=== PATIENT | female | born 2000 | race Caucasian/White ===

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

== ENCOUNTER 2022-08-15 23:34 | Emergency (ER) | payer MEDICAID, SELFPAY ==
--- NOTE | 2022-08-15 23:45 | ECG_ITS ---
Test Reason : CHEST PAIN Blood Pressure : / mmHG Vent. Rate : 120 BPM Atrial Rate : 120 BPM P-R Int : 154 ms QRS Dur : 088 ms QT Int : 326 ms P-R-T Axes : 042 058 024 degrees QTc Int : 460 ms Sinus tachycardia Otherwise normal ECG No previous ECGs available Referred By: Generic ED Physician Electronically Signed By:CLARI RICHARD MD
[2022-08-15 23:58] VITALS: BP 130/76; PULSE 90; RESP 20; TEMP 36.4; BMI 23.3
[2022-08-16 00:07] LABS: MANUAL DIFF FLAG NO
[2022-08-16 00:08] LABS: Basophils Absolute Auto 0.1 X10*3/uL (0.0-0.2); Basophils Percent Auto 0.9 % (0-2); Eosinophils Absolute Auto 0.1 X10*3/uL (0.0-0.4); Eosinophils Percent Auto 1.4 % (0-4); Hematocrit 35.8 % (37.0-47.0); Hemoglobin 11.6 g/dl (12.0-16.0); Imm Gran Abs Auto 0.01 X10*3/uL (0.00-0.03); Imm Gran Pct Auto 0.1 % (0.0-0.4); Lymphocytes Absolute Auto 3.2 X10*3/uL (1.2-4.9); Lymphocytes Percent Auto 41.5 % (20-40); Mean Corpuscular HGB Conc 32.4 g/dl (31.0-35.0); Mean Corpuscular Hemoglobin 27.4 pg (27.0-33.0); Mean Corpuscular Volume 84.4 fL (80.0-98.0); Mean Platelet Volume 9.5 fL (9.4-12.3); Monocytes Absolute Auto 0.5 X10*3/uL (0.1-1.2); Monocytes Percent Auto 6.3 % (2-11); Neutrophils Absolute Auto 3.8 x10*3/uL (2.0-8.3); Neutrophils Percent Auto 49.8 % (45-73); Platelet Count 379 X10*3/uL (160-400); Red Blood Count 4.24 X10*6/uL (4.20-5.50); Red Cell Distribution Width 12.8 % (11.0-16.0); White Blood Count 7.6 X10*3/uL (4.8-10.8)
--- NOTE | 2022-08-16 00:08 | ED.CHESTPAIN ---
HPI - Chest Pain General Chief Complaint: Chest Pain Stated Complaint: face numbness, chest pain Time Seen by Provider: 08/16/22 00:07 Source: patient, RN notes reviewed and old records reviewed Mode of arrival: ambulatory Limitations: no limitations History of Present Illness HPI narrative: 21-year-old female past medical history significant for anxiety presents numbness, tingling and chest pain. She reports her symptoms started yesterday with tingling in the tip of her nose She reports that it then spread to both sides of her face. She reports that she has a hard time describing what she is healing on her face. ?I can feel everything but it feels funny to me. She states that she cooled her symptoms and ?it said something about a brain tumor and then I started to have chest pain. ? Patient denies any medical history. She states that she used to take hydroxyzine as needed for anxiety She stopped this a few months ago because ?sometimes I am in the tired and it was hard for me to function and work while taking it Related Data Previous Rx's Medication Instructions Recorded doxycycline monohydrate 100 mg 100 mg PO BID 7 days #14 caps 05/25/20 capsule hydroxyzine HCl 25 mg tablet 25 mg PO TID PRN anxiety #20 tabs 08/16/22 Allergies Allergy/AdvReac Type Severity Reaction Status Date / Time No Known Allergies Allergy Verified 04/23/20 12:54 [No Known Allergies*] Review of Systems Constitutional: Constitutional: Denies body ache(s), Denies chills, Denies fever(s) and Denies headache(s) Eyes: Eyes: Denies blurry vision ENT: Denies headache(s), Denies neck pain, Denies sore throat, Denies throat swelling and Denies tongue swelling Cardiovascular: Cardiovascular: Reports chest pain, Denies leg edema, Denies palpitations, Denies dyspnea and Denies dyspnea on exertion Respiratory: Respiratory: Denies dyspnea and Denies dyspnea on exertion Gastrointestinal: Gastrointestinal: Denies abdominal pain, Denies nausea and Denies vomiting Musculoskeletal: Musculoskeletal: Denies back pain, Denies neck pain, Reports numbness and Reports tingling Integumentary/Breasts: Skin/Breast: Denies rash Neurologic: Denies headache(s), Reports numbness, Reports tingling and Reports paresthesias Psychiatric: Psychiatric: Reports anxiety Endocrine: Endocrine: Denies palpitations Allergic/Immunologic: Allergic/Immunologic: Denies throat swelling and Denies tongue swelling PMFSH Past Medical History Medical History No known health problems No known health problems Social History Social History Alcohol intake: current Alcohol intake frequency: a few times a week Alcohol type: wine and hard liquor Smoked in Last 30 Days: Yes Substance Use Type: Marijuana Substance Use Frequency: Daily Advance Directives: No Advance Directives Information Provided: No Physical Exam Vital Signs: Vital Signs: Last Vital Signs Temp 98.2 F 08/16/22 00:21 Pulse 80 08/16/22 00:21 Resp 12 08/16/22 00:21 BP 111/78 08/16/22 00:21 Pulse Ox 97 08/16/22 00:21 O2 Del Method Room Air 08/16/22 00:21 BMI result Body Mass Index 23.3 Const: General: healthy appearing, comfortable, no acute distress, alert and awake Nutritional Appearance: well nourished Orientation/consciousness: patient oriented x3 HEENT: Head: Yes normocephalic and Yes atraumatic Throat: Yes posterior oropharynx normal Eyes: Eyelids: Yes eyelids normal Conjunctivae: conjunctivae normal Sclerae: sclerae normal Corneas: corneas normal Pupils: Equal, round and reactive pupils present EOM: EOMs intact bilaterally Neck: Neck: Yes full ROM Resp: Effort & Inspection: normal respiratory effort, able to speak in complete sentences, no audible wheezes and not labored Auscultation: clear to auscultation bilaterally Cardio: Rate: regular rate Rhythm: regular rhythm GI: Inspection: No distended Palpation (GI): Soft to palpation, not firm, nontender, no guarding and not rigid Auscultation: normoactive bowel sounds Skin: General skin exam: no rashes or lesions noted and elasticity normal Neuro: General: patient oriented x3 Cranial nerves: Yes Equal, round and reactive pupils present and Yes Bilaterally intact EOM present Cognition (Neuro): normal cognition Medications Administered Discontinued Medications Generic Name Dose Route Start Last Admin Trade Name Freq PRN Reason Stop Dose Admin Hydroxyzine HCl 25 mg 08/16/22 00:15 08/16/22 00:46 Hydroxyzine Hcl 25 Mg Tablet PO 08/16/22 00:16 25 mg ONCE ONE Administration Medical Decision Making Medical Decision Making [facility] Narrative: 21-year-old female presents for evaluation numbness, to her face as well as chest pain. She also complains of intermittent dizziness. Her symptoms are most consistent with anxiety. I discussed this with her and she reports she was feeling better simply with discussing her symptoms. Her EKG shows sinus tachycardia but no ischemic changes or arrhythmias. Will check basic labs. Patient will be given dose of her hydroxyzine Differential Diagnosis Anxiety B12 deficiency Folate deficiency Arrhythmia CVA in this likely Lab Data 08/16/22 00:03 08/16/22 00:03 Labs: Lab Results 08/16/22 08/16/22 08/16/22 Range/Units 00:03 00:03 00:03 WBC 7.6 (4.8-10.8) X10*3/uL RBC 4.24 (4.20-5.50) X10*6/uL Hgb 11.6 L (12.0-16.0) g/dl Hct 35.8 L (37.0-47.0) % MCV 84.4 (80.0-98.0) fL MCH 27.4 (27.0-33.0) pg MCHC 32.4 (31.0-35.0) g/dl RDW 12.8 (11.0-16.0) % Plt Count 379 (160-400) X10*3/uL MPV 9.5 (9.4-12.3) fL Immature Gran % (Auto) 0.1 (0.0-0.4) % Neut % (Auto) 49.8 (45-73) % Lymph % (Auto) 41.5 H (20-40) % [place] % (Auto) 6.3 (2-11) % Eos % (Auto) 1.4 (0-4) % Baso % (Auto) 0.9 (0-2) % Lymph # (Auto) 3.2 (1.2-4.9) X10*3/uL [place] # (Auto) 0.5 (0.1-1.2) X10*3/uL Eos # (Auto) 0.1 (0.0-0.4) X10*3/uL Baso # (Auto) 0.1 (0.0-0.2) X10*3/uL Abs Immat Gran (auto) 0.01 (0.00-0.03) X10*3/uL Absolute Neuts (auto) 3.8 (2.0-8.3) x10*3/uL Absolute Nucleated RBC 0.000 (0.0-0.012) X10*3/uL Nucleated RBC % (auto) 0.0 (0.0-0.2) /100WBC Sodium 139 (135-145) mmol/L Potassium 3.8 (3.3-5.1) mmol/L Chloride 108 (96-108) mmol/L Carbon Dioxide 20 L (22-29) mmol/L Anion Gap 15 (12-20) BUN 14 (9-16) mg/dL Creatinine 0.81 (0.5-1.4) mg/dL Estim Creat Clear Calc 99.6 Estimated GFR > 60 Random Glucose 98 (60-115) mg/dL Calcium 9.8 (8.4-10.2) mg/dL Troponin I High Sens < 2.7 (<3.5-17.0) ng/L Independent Interpretation I performed an independent interpretation of an: EKG (Sinus tachycardia with a rate of 120 beats per minute. No ST segment changes) Discharge Plan Discharge Clinical Impression: Anxiety Patient Disposition: Home, Self-Care Instructions: Anxiety (ED) Additional Instructions: Your EKG was reassuring. Your blood work did not show any significant abnormalities except for a mild anemia which is consistent with your baseline Your symptoms are most likely related to anxiety. I recommend using your hydroxyzine as needed for anxiety attacks in the future You do not need take this medication every day Prescriptions: New hydroxyzine HCl 25 mg tablet 25 mg PO TID PRN (Reason: anxiety) Qty: 20 0RF No Action doxycycline monohydrate 100 mg capsule 100 mg PO BID 7 Days Qty: 14 0RF
[2022-08-16 00:21] VITALS: BP 111/78; PULSE 80; RESP 12; TEMP 36.8; O2SAT 97
[2022-08-16 00:26] LABS: Anion Gap 15 (12-20); Blood Urea Nitrogen 14 mg/dL (9-16); Calcium 9.8 mg/dL (8.4-10.2); Carbon Dioxide 20 mmol/L (22-29); Chloride 108 mmol/L (96-108); Creatinine Clr Calc Pharmacy 99.6; Estimated Glomerular Filt Rate > 60; Glucose Random 98 mg/dL (60-115); Potassium 3.8 mmol/L (3.3-5.1); Sodium 139 mmol/L (135-145)
[2022-08-16 00:35] LABS: Troponin-I High Sensitivity < 2.7 ng/L (<3.5-17.0)
[2022-08-16 00:46] VITALS: PULSE 76
[2022-08-16] MEDS: hydrOXYzine HCL 25 MG TABLET PO (00:46)
== END 2022-08-16 00:59 | disposition home or self-care (01) ==
PROVIDERS: Emergency Provider Emergency Medicine
DX: R07.89 Other chest pain (principal); F41.9 Anxiety disorder, unspecified; Z79.899 Other long term (current) drug therapy
CPT/HCPCS: 36415; 80048; 84484; 85025; 93005; 99284; 99285

== ENCOUNTER 2023-01-26 18:51 | Outpatient (REF) | payer OTHER, SELFPAY ==
[2023-01-28 21:34] LABS: C. trachomatis RNA TMA NOT DETECTED (NOT DETECTED); N. gonorrhoeae RNA TMA NOT DETECTED (NOT DETECTED)
== END 2023-01-26 18:52 | disposition home or self-care (01) ==
LOC: HO.HHCLNP 18:51
PROVIDERS: Visit Provider Internal Medicine
DX: Z11.3 Encounter for screening for infections with a predominantly sexual mode of transmission (principal); R30.0 Dysuria
CPT/HCPCS: 36415; 81513; 87491; 87591

== ENCOUNTER 2024-03-23 11:49 | Outpatient (REF) | payer OTHER, SELFPAY ==
[2024-03-26 20:09] LABS: Immunoglobulin A 215 mg/dL (47-310); Transglutaminase IgA <1.0 U/mL
== END 2024-03-23 11:50 | disposition home or self-care (01) ==
LOC: HO.HHCL 11:49
PROVIDERS: Visit Provider General Practice
DX: R19.7 Diarrhea, unspecified (principal)
CPT/HCPCS: 36415; 82784; 86364; 87177; 87209

== ENCOUNTER 2024-03-23 13:36 | Outpatient (REF) | payer OTHER, SELFPAY | END 2024-03-23 13:37 | disposition home or self-care (01) | LOC: HO.HHCL 13:36 | PROVIDERS: Visit Provider General Practice | DX: Z13.89 Encounter for screening for other disorder (principal) ==

== ENCOUNTER 2024-08-10 14:05 | Outpatient (REF) | payer OTHER, SELFPAY ==
--- OUTSIDE RECORDS SUMMARY | 2024-08-10 14:09 | XMS_ITS | Clinical Summary ---
Author Organization [employer] Address [address] [place] [address] [address] [place] [address] Care Team Providers Care Rig Builder Name Role Phone Valarie May MD Primary Care Provide r Allergies No known active allergies Medications cetirizine (ZyrTEC) 10 MG tablet Take 1 tablet (10 mg) by mouth in the morning. 30 tablet 3 Active fluticasone (Flonase Allergy Relief) 50 MCG/ACT nasal spray Administer 1 spray into each nostril in the morning. Shake gently. Before first use, prime pump. After use, clean tip and replace cap. 16 g 12 4 Active triamcinolone (Kenalog) 0.1 % creamIndication s:Eczema, unspecified type Apply topically if needed in the morning and at bedtime (pain and swelling). 30 g 2 4 Active hydrOXYzine HCl (Atarax) 25 MG tabletIndicatio ns:Mixed anxiety and depressive disorder Take 1 tablet (25 mg) by mouth if needed at bedtime for itching. 60 tablet 2 5 Active hydrOXYzine HCl (Atarax) 25 MG tablet 1-2 tab po at bedtime; may take 1 tab po prn panic attacks. 1 08/11/19 25 Discontin ued(Thera py completed ) Active Problems Problem Noted Date Diagnosed Date Family history of coronary artery disease in gra ndmother 08/10/2024 Eczema 12/21/2023 Atopic eczema 11/04/2022 Assessment & Plan (11/05/2022 5:40 AM EDT): There are 2 round patches on mid-shins (both legs), reported as chronic, per pt. Itchy on and off. Pt reports having this since childhood. Possibly eczema. -Trial w Triamcinolone cream. -Pt requests dermatology referral, done today. Allergic dermatitis 11/04/2022 Assessment & Plan (11/05/2022 5:42 AM EDT): Skin: noted irritation of the skin on flexor and extensor surfaces of both arms and extending towards the posterior of both axillas w no other areas of the skin affected. Possibly associated w recent skin product use. -Prescribed Triamcinolone cream BID for no more than 10 d. -Cetirizine PRN (states that is not using Hydroxyzine as much because it causes drowsiness). -Alarm signs and Sx discussed. Difficulty sleeping 08/23/2022 Mixed anxiety and depressive disorder 08/23/2022 Seasonal allergies 08/23/2022 Hematoma 08/23/2022 Assessment & Plan (08/23/2022 2:05 PM EDT): Ice Compression, jaquan wrap given Do not take oral medications Topical medications if needed Will check CBC due to fever in clinic and extent of bruising Microcytic anemia 01/28/2022 Vitamin D deficiency 01/28/2022 Resolved Problems Problem Noted Date Diagnosed Date Resolved Date Diarrhea 03/23/2024 08/10/2024 Assessment & Plan (03/23/2024 4:22 PM EST): Well appearing F, without clinical dehydration, 20 pound weight loss in one year though. Will check for common causes of diarrhea in resource rich countries, and O&P due to string in stool Continue to focus on dietary awareness and changes Eat probiotic foods daily Eye pain, right 12/21/2023 08/10/2024 Encounter for preventive care 12/21/2023 08/10/2024 Assessment & Plan (12/21/2023 2:17 PM EDT): See HPI Encounters Date Type Department Care Team Description 08/10/2024 1:20 PM EDT Office Visit [facility] [address] [place] [address] [phone] Palpitations (Primary Dx); Family history of coronary artery disease in grandmother; Mixed anxiety and depressive disorder 08/10/2024 Telephone [facility] [address] [place], [place] [phone] Grace Garzon, [facility] triage 08/10/2024 Travel 08/10/2024 Telephone [facility] [address] [place], [place] [phone] Valarie May MD Nurse Triage 05/31/2024 Telephone [facility] [address] [place], [place] [phone] Valarie May MD from Last 3 Months Immunizations Immunization Administration Dates Next Due DTaP 04/07/2006, 4,09/18/2002,05/04,03/08/2002 HPV 9-Valent 07/06/2013 HPV, Unspecified 12/12/2014 Hep A, ped/adol, 2 dose 03/22/2017,05/13/2010 Hep B, Adolescent or Pediatric 10/16/2002,2001,01/03/2002 HiB, unspecified 04/10/2003,09/18/2002, 3 Hib (PRP-T) 03/08/2002 IPV 04/07/2006, 4,07/05/2002,04/06 Influenza injectable quadriv alent IIV4 with preservative 12/02/2015,11/12/2014,04/04/2012,05/13,05/07/2009,02/17/2005 Influenza injectable quadriv alent preservative free 01/20/2022,04/29/2020,04/05/2019 Influenza, seasonal, injecta ble, preservative free 12/21/2023 MMR 04/07/2006,04/10/2003 Meningococcal MCV4P ACYW-135 04/05/2019,03/22/19 18 Pneumococcal Conjugate PCV 13 10/24/2003 ,10/22/2003,07/05/2002,04/06 Tdap 03/22/2017,01/27/2015 Varicella 03/22/2017,01/04/2003 Family History Medical History Relation Name Comments Heart disease Maternal Grandmother Hypertension Maternal Grandmother Depression Mother Kidney disease Paternal Grandfather Relation Name Status Comments Maternal Grandmother Mother Paternal Grandfather Social History Tobacco Use Types Packs/Day Years Used Date Smoking Tobacco: Every Day Cigarettes Passive Smoke Exposure: Never Smokeless Tobacco: Never Tobacco Cessation:Ready to Q uit: Not Asked; Counseling Given: Not Answered Alcohol Use Standard Drinks/Week Comments Yes 0 (1 standard drink = 0.6 oz pur e alcohol) Depression Answer Date Recorded Patient Health Questionnaire-9 Score 13 08/10/2024 Patient Health Questionnaire-9 Score 13 08/10/2024 Last PHQ-9: Questionnaire Data Not on file 0 08/10/2024 Housing Stability Answer Date Recorded What is your housing situation today? I have chuy carver 08/18/[address] you li ve. Do you have problems with any of the following? None of the above 08/18/2023 Food Insecurity Answer Date Recorded Within the past 12 months, y ou worried that your food would run out before you got money to buy more: Never True 08/18/2023 Within the past 12 months,th e food you bought just didn't last and you didn't have enough money to get more: Never True Transportation Answer Date Recorded In the past 12 months, has l ack of transportation kept you from medical appts, meetings, work or from getting things needed for daily living? No 08/18/2023 Utilities Answer Date Recorded In the past 12 months, has t he electric, gas, oil or water company threatened to shut off services in your home? No 08/18/2023 Depression Answer Date Recorded Patient Health Questionnaire-2 Score 3 08/10/2024 Comments No Sex and Gender Information Value Date Recorded Sex Assigned at Female 01/18/2022 10:24 AM EDT Legal Sex Female 10:24 AM EDT Gender Identity Female 01/18/2022 10:24 AM EDT Sexual Orientation Lesbian 03/05/2024 8: 37 AM EST Last Filed Vital Signs Vital Sign Reading Time Taken Comments Blood Pressure 110/71 08/10/2024 1:25 PM EDT Pulse 86 08/10/2024 1:25 PM EDT Temperature 36.8 ??C (98.2 ??F) 08/10/2024 1:25 PM ED T Respiratory Rate 18 08/10/2024 1:25 PM EDT Oxygen Saturation 100% 08/10/2024 1:25 PM EDT Inhaled Oxygen Concentration - - Weight 63.2 kg (139 lb 6.4 oz) 08/10/2024 1:25 P M EDT Height 165.1 cm (5' 5 ) 08/10/2024 1:25 PM EDT Body Mass Index 23.2 08/10/2024 1:25 PM EDT Plan of Treatment Upcoming Encounters Date Type Department Care Team (Late st Contact Info) Description 11/30/2024 1:00 PM EDT Office Visit [facility] [address] [place], [place] [phone] Anthony, Lani, OD [address] [place] [address] Health Maintenance Due Date Last Done Comments HIV Screening 2001 Lipid Panel 2001 Disability Screening 2001 Pneumococcal Vaccine: Pediatrics (0 to 5 Years) and At-Risk Patients (6 to 49) Years) (1 of 1 - PPSV23) 12/24/2007 10/24/2003, 10/22/2003, 07/05/2002, Additional history exists Alcohol/Substance Use Screening 2013 Family Planning (PISQ) 2016 Meningococcal B Vaccine (1 of 2 - Standard) 2017 Hepatitis C Screening 12/24/2019 Pap Smear 2022 COVID-19 Vaccine ( season) 2023 03/26/2021, 08/08/2020, 07/11/2020 Chlamydia and Gonorrhea Screening 01/27/2024 01/26/2023 SDOH Screening 08/17/2024 08/18/2023 Depression Screening 12/20/2024 12/21/2023, 12/21/19 24 Tobacco Screening 03/23/2025 03/23/2024 DTaP/Tdap/Td Vaccines (8 - Td or Tdap) 03/22/2027 03/22/2017, 01/27/2015, 04/07/2006, Additional history exists Zoster Vaccines (1 of 2) 12/24/2051 RSV Patients and Patients Aged 60 years or older (1 - 1-dose 75+ series) 2076 Hepatitis B Vaccines Completed 10/16/2002, 02/01/2002, 01/03/2002 HIB Vaccines Completed 04/10/2003, 07/0 03/2002, 05/04/2002, Additional history exists IPV Vaccines Completed 04/07/2006, 05/20, 07/05/2002, Additional history exists HPV Vaccines Completed 12/12/2014, 07/06/2013 Hepatitis A Vaccines Completed 03/22/2017, 05/13/19 11 Meningococcal Vaccine Completed 04/05/2019, 018 Influenza Vaccine Completed 12/21/2023, , 04/29/2020, Additional history exists RSV under 20 months Aged Out No longe r eligible based on patient's age to complete this topic Rotavirus Vaccines Aged Out No longer eligible based on patient's age to complete this topic Procedures Procedure Name Priority Date/Time Associated Diagnosis Comments SURESWAB(R) ADVANCED BV/CT/NG, TMA Routine 01/26/2023 4:14 PM EST Dysuria Routine screening for STI (sexually transmitted infection) from Last 3 Months or Most Recently Relevant to Health Maintenance Results * (ABNORMAL) SureSwab?? Advanced Bacterial Vaginosis (BV), CT/NG, TMA (01/26/2023 4:14 PM EST) CTNG Ref Lab NOT DETECTED NOT DETECTED [facility] NG Ref Lab NOT DETECTED NOT DETECTED [facility] Comment:For additional infor mation, please refer [email or web address].[employer]/faq/BNA782(This link is being provided for information/educational purposes only.)THIS TEST WAS PERFORMED AT:[facility] [address] [id number] AGUILAR MD SureSwab 9R) ADV Bacterial Vaginosis (BV), TMA POSITIVE(A) NEGATIVE [facility] Comment:THIS TEST WAS PERFOR MED AT:[facility] [address] [id number] AGUILAR MD Swab Vaginal structure / Unknown 01/26/2023 4:14 PM EST 01/26/2023 6:57 PM EST Yanick Arrington MD LAB BODY FLUIDS AND STOOLS ORDERABLES Final Result [facility] [address] [place] [address] [phone] from Last 3 Months or Most Recently Relevant to Health Maintenance Insurance Care Teams Rig Builder Relationship Specialty Start Date End Date Valarie May MD [address] [place] [phone] PCP - General Family Medicine 11/12/21
[2024-08-10 16:33] LABS: MANUAL DIFF FLAG NO
[2024-08-10 16:38] LABS: Basophils Absolute Auto 0.1 X10*3/uL (0.0-0.2); Basophils Percent Auto 0.9 % (0-2); Eosinophils Percent Auto 0.3 % (0-4); Hemoglobin 11.7 g/dl (12.0-16.0); Imm Gran Abs Auto 0.01 X10*3/uL (0.00-0.03); Imm Gran Pct Auto 0.2 % (0.0-0.4); Lymphocytes Absolute Auto 1.5 X10*3/uL (1.2-4.9); Lymphocytes Percent Auto 22.8 % (20-40); Mean Corpuscular HGB Conc 32.5 g/dl (31.0-35.0); Mean Corpuscular Hemoglobin 28.3 pg (27.0-33.0); Mean Corpuscular Volume 87.2 fL (80.0-98.0); Mean Platelet Volume 10.5 fL (9.4-12.3); Monocytes Absolute Auto 0.3 X10*3/uL (0.1-1.2); Monocytes Percent Auto 5.2 % (2-11); Neutrophils Absolute Auto 4.5 x10*3/uL (2.0-8.3); Neutrophils Percent Auto 70.6 % (45-73); Platelet Count 361 X10*3/uL (160-400); Red Blood Count 4.13 X10*6/uL (4.20-5.50); Red Cell Distribution Width 12.6 % (11.0-16.0); White Blood Count 6.4 X10*3/uL (4.8-10.8)
[2024-08-10 17:04] LABS: Alanine Aminotransferase 14 U/L (0-31); Albumin Level 4.7 g/dL (3.5-5.0); Alkaline Phosphatase 56 U/L (39-117); Anion Gap 11 (12-20); Aspartate Amino Transferase 21 U/L (5-31); Bilirubin Total 0.3 mg/dL (0.0-1.0); Blood Urea Nitrogen 11 mg/dL (9-16); Calcium 9.7 mg/dL (8.4-10.2); Carbon Dioxide 27 mmol/L (22-29); Chloride 106 mmol/L (96-108); Cholesterol 171 mg/dL (<200); Estimated Glomerular Filt Rate > 60; Glucose Random 93 mg/dL (60-115); HDL Cholesterol 64 mg/dL (>40); LDL Cholesterol Calculated 95 mg/dL (<100); Potassium 4.1 mmol/L (3.3-5.1); Sodium 140 mmol/L (135-145); Total Protein 7.3 g/dL (6.5-8.0); Triglycerides 60 mg/dL (<150)
[2024-08-10 17:22] LABS: TSH reflex Free T4 0.45 uIU/mL (0.32-4.0)
== END 2024-08-10 14:06 | disposition home or self-care (01) ==
LOC: HO.HHCL 14:05
PROVIDERS: Visit Provider General Practice
DX: R00.2 Palpitations (principal)
CPT/HCPCS: 36415; 80053; 80061; 84443; 85025

== ENCOUNTER 2024-09-04 16:30 | Outpatient (REF) | payer OTHER, SELFPAY ==
--- OUTSIDE RECORDS SUMMARY | 2024-09-04 18:36 | XMS_ITS | Clinical Summary ---
Author Organization [employer] Address [address] [place] [address] [address] [place] [address] Care Team Providers Care Soa Architect Name Role Phone Valarie May MD Primary [...] for itching. 60 tablet 2 5 Active ferrous sulfate (Fe Tabs) 325 (65 Fe) MG EC tabletIndicatio ns:Anemia, unspecified type Take 1 tablet (325 mg) by mouth every other day. Do not crush, chew, or split. 15 tablet 2 5 08/17/19 26 Active SUMAtriptan (Imitrex) 50 MG tablet Take 1 tablet (50 mg) by mouth 1 (one) time if needed for migraine for up to 1 dose. May repeat dose once in 2 hours if no relief. Do not exceed 2 doses in 24 hours. 9 tablet 5 Active ondansetron (Zofran) 4 MG tabletIndicatio ns:Migraine without status migrainosus, not intractable, unspecified migraine type Take 1 tablet (4 mg) by mouth every 12 (twelve) hours if needed for nausea or vomiting for up to 10 days. 20 tablet 5 09/15/19 25 Active ibuprofen 800 MG tablet Take 1 tablet (800 mg) by mouth every 12 (twelve) hours if needed for headaches for up to 10 days. 20 tablet 5 09/15/19 25 Active hydrOXYzine HCl (Atarax) 25 MG tablet 1-2 tab po at bedtime; may take 1 tab po prn panic attacks. 1 08/11/19 25 Discontin ued(Thera py completed ) Active Problems Problem Noted Date Diagnosed Date Migraine without status migrainosus, not intract able 09/04/2024 Assessment & Plan (09/04/2024 2:34 PM EDT): Pt with two episodes of headaches meeting migraine criteria + fh of migraines No constitutional symptoms Reviewed abortive measure, headache journal, options for management Pt will Return to clinic in 6-8 weeks to follow up with pcp Sooner if headaches worsen or develops new or concerning symptoms Healthcare maintenance 09/04/2024 Assessment & Plan (09/04/2024 2:32 PM EDT): Gc/chl completed today, Neg preg Family history of coronary artery disease in [...] Encounters Date Type Department Care Team Description 09/04/2024 1:30 PM EDT Office Visit [facility] [address] [place] [address] Deanna Kahn NP Migraine without status migrainosus, not intractable, unspecified migraine type (Primary Dx); Healthcare maintenance 09/04/2024 Travel 09/04/2024 Telephone [facility] [address] [place] [address] Valarie May MD Medication Question 08/30/2024 Telephone [facility] [address] [place] [address] Valarie May MD Nurse Triage 08/16/2024 Orders Only [facility] [address] [place] [phone] Valarie May MD Anemia, unspecified type (Primary Dx) 08/15/[address] [phone] Valarie May MD Medication Question 08/10/2024 1:20 PM EDT Office Visit [facility] [address] [place] [phone] Bianka Eli MD Palpitations (Primary Dx); Family history of coronary artery disease in grandmother; Mixed anxiety and depressive disorder; Eczema craquele 08/10/2024 Telephone [facility] [address] [place] [address] [phone] Grace Garzon, [facility] triage 08/10/2024 Travel 08/10/[address] [phone] Valarie May MD Nurse Triage from Last 3 Months Immunizations Immunization Administration [...] Sign Reading Time Taken Comments Blood Pressure 122/78 09/04/2024 1:44 PM EDT Pulse 92 09/04/2024 1:44 PM EDT Temperature 36.2 ??C (97.2 ??F) 09/04/2024 1:44 PM ED T Respiratory Rate 16 09/04/2024 1:44 PM EDT Oxygen Saturation 100% 09/04/2024 1:44 PM EDT Inhaled Oxygen Concentration - - Weight 64.2 kg (141 lb 9.6 oz) 09/04/2024 1:44 P M EDT Height 165.1 cm (5' 5 ) 09/04/2024 1:44 PM EDT Body Mass Index 23.56 09/04/2024 1:44 PM EDT Plan of Treatment Upcoming Encounters Date Type Department Care Team (Late st Contact Info) Description 11/09/2024 3:15 PM EDT Office Visit [facility] [address] [place] [address] Valarie May MD [address] [place] [address] 11/30/2024 1:00 PM EDT Office Visit [facility] [address] [place] [address] Lani Cruz, OD [address] [place] [address] Health Maintenance Due Date Last Done Comments HIV Screening 2001 Disability Screening 2001 Pneumococcal Vaccine: Pediatrics (0 to 5 Years) and At-Risk Patients (6 to 49) Years (1 of 1 - PPSV23) 12/24/2007 10/24/2003, 10/22/2003, 07/05/2002, Additional history exists Alcohol/Substance Use Screening 2013 Family Planning (PISQ) 2016 Meningococcal B Vaccine (1 of 2 - Standard) 2017 Hepatitis C Screening 12/24/2019 Pap Smear 2022 COVID-19 Vaccine ( season) 2023 03/26/2021, 08/08/2020, 07/11/2020 Chlamydia and Gonorrhea Screening 01/27/2024 01/26/2023 SDOH Screening 08/17/2024 08/18/2023 Depression Monitoring 02/10/2025 08/10/2024, 025 Tobacco Screening 09/04/2025 09/04/2024 DTaP/Tdap/Td Vaccines (8 - Td or Tdap) 03/22/2027 03/22/2017, 01/27/2015, 04/07/2006, Additional history exists Lipid Panel 08/10/2029 08/10/2024 Zoster Vaccines (1 of 2) 12/24/2051 RSV [...] Procedure Name Priority Date/Time Associated Diagnosis Comments POCT , URINE Routine 09/04/2024 2:00 PM EDT Healthcare maintenance ECG 12-LEAD Routine 08/10/2024 2:30 PM EDT Palpitations COMPREHENSIVE METABOLIC PANEL Routine 08/10/2024 2:07 PM EDT Palpitations LIPID PANEL, STANDARD Routine 08/10/2024 2:07 PM EDT Palpitations TSH W/REFLEX TO FT4 Routine 08/10/2024 2 :07 PM EDT Palpitations CBC WITH AUTO DIFFERENTIAL Routine 08/10/2024 2:07 PM EDT Palpitations ECG 12-LEAD Routine 08/10/2024 SURESWAB(R) ADVANCED BV/CT/NG, TMA Routine 01/26/2023 4:14 PM EST Dysuria Routine screening for STI (sexually transmitted infection) from Last 3 Months or Most Recently Relevant to Health Maintenance Results * POCT Urine (09/04/2024 2:00 PM EDT) Preg Test, Ur Negative Negative, Indeterminate, None Detected, Invalid, Specimen unsatisfactory for evaluation, Weakly Positive, 2+ QC Media Lot # [id number] Lot# Expiration Date 96,[id number] QC TEST 0 Urine 09/04/2024 2:00 PM EDT us Deanna Kahn NP POINT OF CARE TEST ENTER/EDIT OR DERABLES Final Result * ECG 12 lead (08/10/2024 2:30 PM EDT) Only the most recent of2 resultswithin the time period is included. Narrative Bianka Eli MD - 08/10/2024 2:30 PM EDT NSR, with VR [address]-T segment abnormalities us Bianka Eli MD ECG ORDERABLES Final Result * TSH W/Reflex to FT4 (08/10/2024 2:07 PM EDT) TSH reflex Free T4 0.45 0.32 - 4.0 uIU/mL [facility] Blood Venous blood specimen / Unknown 08/10/2024 2:07 PM EDT 08/10/2024 4:24 PM EDT us Bianka Eli MD LAB BLOOD ORDERABLES Final Res ult [facility] [address], [place] [phone] * (ABNORMAL) CBC auto differential (08/10/2024 2:07 PM EDT) White Blood Count 6.4 4.8 - 10.8 X10*3/uL [facility] Red Blood Count 4.13(L) 4.20 - 5.50 X10*6/uL [facility] Hemoglobin 11.7(L) 12.0 - 16.0 g/dl [facility] Hematocrit 36.0(L) 37.0 - 47.0 % [facility] Mean Corpuscular Volume 87.2 80.0 - 98.0 fL [facility] Mean Corpuscular Hemoglobin 28.3 27.0 - 33.0 pg [facility] Mean Corpuscular HGB Conc 32.5 31.0 - 35.0 g/dl [facility] Red Cell Distribution Width 12.6 11.0 - 16.0 % [facility] Platelet Count 361 160 - 400 X10*3/uL [facility] Mean Platelet Volume 10.5 9.4 - 12.3 fL [facility] Neutrophils Percent Auto 70.6 45 - 73 % [facility] Imm Gran Pct Auto 0.2 0.0 - 0.4 % [facility] Lymphocytes Percent Auto 22.8 20 - 40 % [facility] Monocytes Percent Auto 5.2 2 - 11 % [facility] Eosinophils Percent Auto 0.3 0 - 4 % [facility] Basophils Percent Auto 0.9 0 - 2 % [facility] NRBC Pct Auto 0.0 0.0 - 0.2 /100WBC [facility] Neutrophils Absolute Auto 4.5 2.0 - 8.3 x10*3/uL [facility] Imm Gran Abs Auto 0.01 0.00 - 0.03 X10*3/uL [facility] Lymphocytes Absolute Auto 1.5 1.2 - 4.9 X10*3/uL [facility] Monocytes Absolute Auto 0.3 0.1 - 1.2 X10*3/uL [facility] Eosinophils Absolute Auto 0.0 0.0 - 0.4 X10*3/uL [facility] Basophils Absolute Auto 0.1 0.0 - 0.2 X10*3/uL [facility] NRBC Abs Auto 0.000 0.0 - 0.012 X10*3/uL [facility] Blood Venous blood specimen / Unknown 08/10/2024 2:07 PM EDT 08/10/2024 4:24 PM EDT us Bianka Eli MD LAB BLOOD ORDERABLES Final Res ult [facility] [address] [place] [phone] [phone] * Lipid Panel, Standard (08/10/2024 2:07 PM EDT) Triglycerides 60 <150 mg/dL [facility] Comment:Desirable Triglyceri de: less than 150 mg/dLBorderline High Triglyceride 150-199 mg/dLHigh Triglyceride: 200-499 mg/dLVery High Triglyceride: greater than or equal to 5OO mg/dL Cholesterol 171 <200 mg/dL [facility] Comment:Desirable Cholestero l: less than 200 mg/dLBorderline High Cholesterol: 200-239 mg/dLHigh Cholesterol: greater than 239 mg/dL LDL Cholesterol Calculated 95 <100 mg/dL [facility] Comment:Desirable LDL: less than 100 mg/dLNear Optimal/Above Optimal LDL: 110- 129 mg/dLBorderline High LDL: 130-159 mg/dLHigh LDL: 160-189 mg/dLVery High LDL: greater than or equal to 190 mg/dL HDL Cholesterol 64 >40 mg/dL [facility] Comment:Desirable HDL: great er than 40 mg/dL Note: This HDL assay may give artificially low results in patients with liver disease. Blood Venous blood specimen / Unknown 08/10/2024 2:07 PM EDT 08/10/2024 4:24 PM EDT us Bianka Eli MD LAB BLOOD ORDERABLES Final Res ult [facility] [address] [place] [phone] * (ABNORMAL) Comprehensive Metabolic Panel (08/10/2024 2:07 PM EDT) Sodium 140 135 - 145 mmol/L [facility] Potassium 4.1 3.3 - 5.1 mmol/L [facility] Chloride 106 96 - 108 mmol/L [facility] Carbon Dioxide 27 22 - 29 mmol/L [facility] Anion Gap 11(L) 12 - 20 [facility] Urea Nitrogen (BUN) 11 9 - 16 mg/dL [facility] Creatinine, Serum 0.71 0.5 - 1.4 mg/dL [facility] Estimated Glomerular Filt Rate >60 [facility] Comment:Chronic Kidney Disea se: Estimated GFR < 60 mL/min/1.47l6Hcwfvw Kidney Disease: Estimated GFR < 15 mL/min/1.73m2 Glucose 93 60 - 115 mg/dL [facility] Calcium 9.7 8.4 - 10.2 mg/dL [facility] Bilirubin, Total 0.3 0.0 - 1.0 mg/dL [facility] Aspartate Amino Transferase 21 5 - 31 U/L [facility] Alanine Aminotransferase 14 0 - 31 U/L [facility] Total Protein 7.3 6.5 - 8.0 g/dL [facility] Albumin Level 4.7 3.5 - 5.0 g/dL [facility] Alkaline Phosphatase 56 39 - 117 U/L [facility] Blood Venous blood specimen / Unknown 08/10/2024 2:07 PM EDT 08/10/2024 4:24 PM EDT Bianka Eli MD LAB BLOOD ORDERABLES Final Res ult Performing Organization Address [facility]/ZIP Co de Phone Number [facility] [address] [place] [phone] * (ABNORMAL) SureSwab?? Advanced Bacterial Vaginosis (BV), CT/NG, TMA (01/26/2023 4:14 PM EST) CTNG Ref Lab NOT DETECTED NOT DETECTED [facility] NG Ref Lab NOT DETECTED NOT DETECTED [facility] Comment:For additional infor mation, please refer [email or web address](This link is being provided for information/educational purposes only.)THIS TEST WAS PERFORMED AT:[facility] [place] [phone] AGUILAR MD SureSwab 9R) ADV Bacterial Vaginosis (BV), TMA POSITIVE(A) NEGATIVE [facility] Comment:THIS TEST WAS PERFOR MED AT:[facility] [place] [id number] AGUILAR MD Swab Vaginal structure / Unknown 01/26/2023 4:14 PM EST 01/26/2023 6:57 PM EST us Yanick Arrington MD LAB BODY FLUIDS AND STOOLS ORDERABLES Final Result Performing Organization Address [facility] Co de Phone Number [facility] [address] [place] [address] [phone] from Last 3 Months or Most Recently Relevant to Health Maintenance Insurance * Guarantor: Lucille Sr Account Type Relation to Patient Date of Phone Billing Address Personal/Family Self [address] [place] [address] HSN PARTIAL Care Teams Soa Architect Relationship Specialty Start Date End Date Valarie May MD [address] [place] [phone] PCP - General Family Medicine 11/12/21
[2024-09-04 18:44] LABS: CT PCR NOT DETECTED (Not Detect.); NG PCR NOT DETECTED (Not Detect.)
== END 2024-09-04 16:31 | disposition home or self-care (01) ==
LOC: HO.HHCLNP 16:30
PROVIDERS: Visit Provider Nurse Practitioner Family
DX: Z00.00 Encounter for general adult medical examination without abnormal findings (principal)
CPT/HCPCS: 87491; 87591

== ENCOUNTER 2024-11-12 21:39 | Emergency (ER) | payer OTHER, SELFPAY ==
--- OUTSIDE RECORDS SUMMARY | 2024-11-09 15:15 | XMS_ITS | Encounter Summary ---
Author Organization [employer] Address [address] [place] [address] [place] [address] Care Team Providers Care Project Manager/Design Manager Name Role Phone Valarie May MD Primary Care Provide r Reason for Referral * Consultation (Routine) - Pending Review Specialty Diagnoses / Procedures Referred By Contac t Referred To Contact Neurology Diagnoses Migraine without status migrainosus, not intractable, unspecified migraine type Valarie May MD [address] [place] [phone] Phone: tel: fax: Referral ID Status Reason Start Date Expiration Date Visits Requested Visits Authorized [id number] Pending Review Specialty Services Required 11/09/2024 11/09/2025 1 1 Reason for Visit * Reason Comments Follow-up Anxiety Encounter Details Date Type Department Care Team (Late st Contact Info) Description 11/09/2024 3:15 PM EDT Office Visit [facility] [address] [place] [phone] Valarie May MD [address], [place] [phone] Migraine without status migrainosus, not intractable, unspecified migraine type Social History Tobacco Use Types Packs/Day Years [...] housing situation today? I have chuy carver 11/02/[address] you li ve. Do you have problems with any of the following? None of the above 11/02/2024 Food Insecurity Answer Date Recorded Within the past 12 months, y ou worried that your food would run out before you got money to buy more: Never True 11/02/2024 Within the past 12 months,th e food you bought just didn't last and you didn't have enough money to get more: Never True Transportation Answer Date Recorded In the past 12 months, has l ack of transportation kept you from medical appts, meetings, work or from getting things needed for daily living? No 11/02/2024 Utilities Answer Date Recorded In the past 12 months, has t he electric, gas, oil or water company threatened to shut off services in your home? No 11/02/2024 Depression Answer Date Recorded Patient Health Questionnaire-2 Score 3 08/10/2024 Internet Access Answer Date Recorded Internet Access Q1 Yes 11/02/2024 Internet Access Q2 Not on file 11/02/2024 Comments No Sex and Gender Information Value Date Recorded Sex Assigned at Female 01/18/2022 10:24 AM EDT Legal Sex Female 10:24 AM EDT Gender Identity Female 01/18/2022 10:24 AM EDT Sexual Orientation Lesbian 03/05/2024 8: 37 AM EST documented as of this encounter Last Filed Vital Signs Vital Sign Reading Time Taken Comments Blood Pressure 110/70 11/09/2024 3:47 PM EDT Pulse 80 11/09/2024 3:47 PM EDT Temperature 37.6 C (99.7 F) 11/09/2024 3:47 PM EDT Respiratory Rate 20 11/09/2024 3:47 PM EDT Oxygen Saturation - - Inhaled Oxygen Concentration - - Weight 66.2 kg (146 lb) 11/09/2024 3:47 PM EDT Height 165.1 cm (5' 5 ) 11/09/2024 3:47 PM EDT Body Mass Index 24.3 11/09/2024 3:47 PM EDT documented in this encounter Progress Notes * Valarie Mathis MD - 11/09/2024 3:15 PM EDT SUBJECTIVE: Lucille Sr is a 23 y.o. year old female who presents for Chronic Disease Management . Acute Concerns: Patient reports she has been having worsening migraines reports pain is located on left side left eye and forehead reports sometimes burning sensation and sometimes stabbing sensation that just last for few minutes and then it goes away, reports sumatriptan does help but is too strong and makes hermuscles sometimes feel weak so she takes more ibuprofen than sumatriptan, reports sometimes it is accompanied with nausea today pain and sometimes she does see floaters with this headache Social History Social History Narrative Not on file Problem List[1] Difficulty sleeping Microcytic anemia Mixed anxiety and depressive disorder Seasonal allergies Vitamin D deficiency Hematoma Atopic eczema Allergic dermatitis Eczema Family history of coronary artery disease in grandmother Migraine without status migrainosus, not intractable Healthcare maintenance Family History[2] Review of Systems Constitutional: Negative. HENT: Negative. Respiratory: Negative. Cardiovascular: Negative. Neurological: Positive for headaches. Negative for dizziness, tremors, seizures, syncope, facial asymmetry, speech difficulty, weakness, light-headedness and numbness. OBJECTIVE: Vitals: 11/09/24 1547 BP: 110/70 BP Location: Left arm Patient Position: Sitting BP Cuff Size: Adult Pulse: 80 Resp: 20 Temp: 99.7 ??F (37.6 ??C) TempSrc: Oral Weight: 146 lb (66.2 kg) Height: 5' 5 (1.651 m) Physical Exam Constitutional: Appearance: Normal appearance. Cardiovascular: Rate and Rhythm: Normal rate and regular rhythm. Pulmonary: Effort: Pulmonary effort is normal. Abdominal: General: Abdomen is flat. Palpations: Abdomen is soft. Musculoskeletal: Right lower leg: No edema. Left lower leg: No edema. Neurological: General: No focal deficit present. Mental Status: She is alert. Mental status is at baseline. Follow Up: Follow up for next available PAP smear . Medications Ordered Prior to Encounter[3] Problem List Items Addressed This Visit Migraine without status migrainosus, not intractable I advise to avoid migraine triggers like red wine, chocolate, cheese, strong perfumes I will start patient on amitriptyline 25 mg at bedtime Continue with sumatriptan 50 mg as needed I will refer her to neurology as per her request Relevant Medications SUMAtriptan (Imitrex) 50 MG tablet amitriptyline (Elavil) 25 MG tablet Other Relevant Orders Referral to Neurology [1] Patient Active Problem List Diagnosis Difficulty sleeping Microcytic anemia Mixed anxiety and depressive disorder Seasonal allergies Vitamin D deficiency Hematoma Atopic eczema Allergic dermatitis Eczema Family history of coronary artery disease in grandmother Migraine without status migrainosus, not intractable Healthcare maintenance [2] Family History Problem Relation Name Age of Onset Depression Mother Heart disease Maternal Grandmother Hypertension Maternal Grandmother Kidney disease Paternal Grandfather [3] Current Outpatient Medications on File Prior to Visit Medication Sig Dispense Refill cetirizine (ZyrTEC) 10 MG tablet Take 1 tablet (10 mg) by mouth in the morning. 30 tablet 0 famotidine (Pepcid) 20 MG tablet Take 1 tablet twice daily as needed for acid reflux 40 tablet 0 ferrous sulfate (Fe Tabs) 325 (65 Fe) MG EC tablet Take 1 tablet (325 mg) by mouth every other day.Do not crush, chew, or split. 15 tablet 2 fluticasone (Flonase Allergy Relief) 50 MCG/ACT nasal spray Administer 1 spray into each nostril Once per day. Shake gently. Before first use, prime pump. After use, clean tip and replace cap. 16 g 2 hydrOXYzine HCl (Atarax) 25 MG tablet Take 1 tablet (25 mg) by mouth if needed at bedtime for itching. 60 tablet 2 [] ibuprofen 800 MG tablet TAKE 1 TABLET (800 MG) BY MOUTH EVERY 12 (TWELVE) HOURS IF NEEDEDFOR HEADACHES FOR UP TO 10 DAYS. 20 tablet 0 triamcinolone (Kenalog) 0.1 % cream Apply topically if needed in the morning and at bedtime (pain and swelling). 30 g 2 [DISCONTINUED] SUMAtriptan (Imitrex) 50 MG tablet Take 1 tablet (50 mg) by mouth 1 (one) time if needed for migraine. May repeat dose once in 2 hours if no relief. Do not exceed 2 doses in 24 hours. 9 tablet 0 No current facility-administered medications on file prior to visit. documented in this encounter Miscellaneous Notes * Assessment & Plan Note - Valarie Mathis MD - 11/09/2024 4:53 PM EDT Associated Problem(s): Migraine without status migrainosus, not intractable I advise to avoid migraine triggers like red wine, chocolate, cheese, strong perfumes I will start patient on amitriptyline 25 mg at bedtime Continue with sumatriptan 50 mg as needed I will refer her to neurology as per her request documented in this encounter Plan of Treatment Upcoming Encounters Date Type Department Care Team (Late st Contact Info) Description 11/30/2024 1:00 PM EDT Office Visit [facility] [address] [place] [address] AnthonyLani dewitt, OD [address] [place] [address] 01/17/2025 10:15 AM EDT Office Visit [facility] [address] [place] [address] Valarie May MD [address] [place] [address] Scheduled Referrals Name Type Priority Associated Diagnoses Orde r Schedule Referral to Neurology Outpatient Referral Routine Migraine without status migrainosus, not intractable, unspecified migraine type Expected: 11/09/2024 (Approximate), Expires: 11/09/2025 documented as of this encounter Visit Diagnoses Diagnosis Migraine without status migrainosus, not intractable, unspecified migraine type documented in this encounter Additional Health Concerns Assessment Noted Time PHQ-9 Depression Total Score: 13 025 2:04 PM EDT documented as of this encounter Care Teams Project Manager/Design Manager Relationship Specialty Start Date End Date Valarie May MD [address] [place] [address] PCP - General Family Medicine 11/12/21 documented as of this encounter
--- NOTE | ~2024-11-12 | US_ITS ---
CLINICAL HISTORY: pain torsion r o US Pelvis Transabdominal and Transvaginal US Arteries Abdomen/Pelvis Doppler, Ovaries, Complete COMPARISON: None provided FINDINGS: Transabdominal scanning performed for overall anatomy. Transvaginal scanning performed for additional detail. The uterus measures 7.5 x 4.3 x 5.5 cm. Anteverted. No mass. Trace anechoic fluid in the endocervical canal, which could be physiologic. Normal endometrium measuring 17 mm in thickness. No endometrial mass. Right ovary: 4.7 x 1.9 x 1.9 cm. No mass. Normal color Doppler. Normal arterial and venous waveforms. No evidence of torsion. Left ovary: 4.1 x 2.5 x 3.0 cm. No mass. Normal color Doppler. Normal arterial and venous waveforms. No evidence of torsion. Left ovarian corpus luteum. Small physiologic anechoic free fluid in the cul-de-sac. IMPRESSION: No acute findings. This document has been electronically signed by: Timbo Croft MD on 11/13/2024 02:49:32
[2024-11-12 22:23] VITALS: BP 129/77; PULSE 82; RESP 16; TEMP 36.6; O2SAT 99; BMI 23.6
--- OUTSIDE RECORDS SUMMARY | 2024-11-12 22:57 | XMS_ITS | Encounter Summary ---
Author Organization [employer] Address [address] [place] [address] [address] [place] [address] Care Team Providers Care Dental Technologist Name Role Phone Valarie May MD Primary Care Provide r Encounter Details Date Type Department Care Team (Latest Contact Info) Description 11/09/2024 Travel Social History Tobacco Use Types Packs/Day Years Used Date Smoking Tobacco: Every Day Cigarettes Passive Smoke Exposure: Never Smokeless Tobacco: Never Alcohol Use Standard Drinks/Week Comments Yes 0 [...] AM EST documented as of this encounter Plan of Treatment Upcoming Encounters Date Type Department Care Team (Late st Contact Info) Description 11/30/2024 1:00 PM EDT Office Visit [facility] [address] [place] [address] Anthony, Lani, OD [address] [place] [address] 01/17/2025 10:15 AM EDT Office Visit [facility] [address] [place] [address] Valarie May MD [address] [place] [address] documented as of this encounter Visit Diagnoses Not on filedocumented in this encounter Additional Health Concerns Assessment Noted Time PHQ-9 Depression Total Score: 13 025 2:04 PM EDT documented as of this encounter Care Teams Dental Technologist Relationship Specialty Start Date End Date Valarie May MD [address] [place] [address] PCP - General Family Medicine 11/12/21 documented as of this encounter
--- OUTSIDE RECORDS SUMMARY | 2024-11-12 22:58 | XMS_ITS | Encounter Summary ---
Author Organization [employer] Address [address] [place] [address] 7t [place] [address] Care Team Providers Care Business Employment Specialist Name Role Phone Valarie May MD Primary Care Provide r Reason for Visit * Reason Onset Date Comments Results 08/24/2022 Encounter Details Date Type Department Care Team ([facility] st Contact Info) Description 08/24/2022 Telephone [facility] MEDICINE [address] [place], [place] [phone] Valarie May MD [address] [place], [place] [phone] Results Social History Tobacco Use Types Packs/Day Years Used Date Smoking Tobacco: Never Smokeless Tobacco: Never Alcohol Use Standard Drinks/Week Comments Yes 0 (1 standard drink = 0.6 oz pur e alcohol) Comments Unknown Sex and Gender Information Value Date Recorded Sex Assigned at Female 01/18/2022 10:24 AM EDT Legal Sex Female 10:24 AM EDT Gender Identity Female 01/18/2022 10:24 AM EDT Sexual Orientation Lesbian 03/05/2024 8: 37 AM EST COVID-19 Exposure Response Date Recorded In the last 10 days, have yo u been in contact with someone who was confirmed or suspected to have Coronavirus/COVID-19? No / Unsure 08/23/2022 1:37 PM EDT documented as of this encounter Miscellaneous Notes * Telephone Encounter - Elizabeth Sparrow - 08/24/2022 12:37 PM EDT Tc from patient requesting lab test results. documented in this encounter Plan of Treatment Upcoming Encounters Date Type Department Care Team (Late st Contact Info) Description 11/30/2024 1:00 PM EDT Office Visit [facility] OPTOMETRY [address] [place] [address] Lani Cruz, OD 230 [place] [address] 01/17/2025 10:15 AM EDT Office Visit [facility] MEDICINE [address] [place] [address] Valarie May MD [address] [place] [address] documented as of this encounter Visit Diagnoses Not on filedocumented in this encounter Care Teams Business Employment Specialist Relationship Specialty Start Date End Date Valarie May MD [address] [place] [address] PCP - General Family Medicine 11/12/21 documented as of this encounter
--- OUTSIDE RECORDS SUMMARY | 2024-11-12 22:58 | XMS_ITS | Clinical Summary ---
Author Organization [employer] Address [address] [place] [address] 7t [place] [address] Care Team Providers Care Application Engineer Name Role Phone Valarie May MD Primary Care Provide r Allergies No known active allergies Medications * This document contains information received from the source organization and may not represent a complete record from that organization. cetirizine (ZyrTEC) 10 MG tablet Take 1 tablet (10 mg) by mouth in the morning. 30 tablet 11/05/19 23 Active triamcinolone (Kenalog) 0.1 % creamIndicatio ns:Eczema, unspecified type Apply topically if needed in the morning and at bedtime (pain and swelling). 30 g 2 12/21/19 24 Active hydrOXYzine HCl (Atarax) 25 MG tabletIndicati ons:Mixed anxiety and depressive disorder Take 1 tablet (25 mg) by mouth if needed at bedtime for itching. 60 tablet 2 08/11/19 25 Active ferrous sulfate (Fe Tabs) 325 (65 Fe) MG EC tabletIndicati ons:Anemia, unspecified type Take 1 tablet (325 mg) by mouth every other day. Do not crush, chew, or split. 15 tablet 2 08/17/19 25 026 Active famotidine (Pepcid) 20 MG tabletIndicati ons:Gastroesop hageal reflux disease, unspecified whether esophagitis present Take 1 tablet twice daily as needed for acid reflux 40 tablet 11/02/19 25 Active fluticasone (Flonase Allergy Relief) 50 MCG/ACT nasal sprayIndicatio ns:Nasal congestion Administer 1 spray into each nostril Once per day. Shake gently. Before first use, prime pump. After use, clean tip and replace cap. 16 g 2 11/02/19 25 026 Active SUMAtriptan (Imitrex) 50 MG tabletIndicati ons:Migraine without status migrainosus, not intractable, unspecified migraine type Take 1 tablet (50 mg) by mouth 1 (one) time if needed for migraine. May repeat dose once in 2 hours if no relief. Do not exceed 2 doses in 24 hours. 9 tablet 11/10/19 25 Active amitriptyline (Elavil) 25 MG tabletIndicati ons:Migraine without status migrainosus, not intractable, unspecified migraine type Take 1 tablet (25 mg) by mouth at bedtime. 30 tablet 3 11/10/19 25 025 Active fluticasone (Flonase Allergy Relief) 50 MCG/ACT nasal spray Administer 1 spray into each nostril in the morning. Shake gently. Before first use, prime pump. After use, clean tip and replace cap. 16 g 12 03/22/19 24 025 Discontinued(Re order (will not trigger notification to Pharmacy)) SUMAtriptan (Imitrex) 50 MG tablet Take 1 tablet (50 mg) by mouth 1 (one) time if needed for migraine for up to 1 dose. May repeat dose once in 2 hours if no relief. Do not exceed 2 doses in 24 hours. 9 tablet 09/05/19 25 025 Discontinued(Re order (will not trigger notification to Pharmacy)) ibuprofen 800 MG tablet Take 1 tablet (800 mg) by mouth every 12 (twelve) hours if needed for headaches for up to 10 days. 20 tablet 09/05/19 25 025 Discontinued ibuprofen 800 MG tablet TAKE 1 TABLET (800 MG) BY MOUTH EVERY 12 (TWELVE) HOURS IF NEEDED FOR HEADACHES FOR UP TO 10 DAYS. 20 tablet 10/25/19 25 025 SUMAtriptan (Imitrex) 50 MG tabletIndicati ons:Migraine without status migrainosus, not intractable, unspecified migraine type Take 1 tablet (50 mg) by mouth 1 (one) time if needed for migraine. May repeat dose once in 2 hours if no relief. Do not exceed 2 doses in 24 hours. 9 tablet 08/14 025 Discontinued(Re order (will not trigger notification to Pharmacy)) Active Problems Problem Noted Date Diagnosed Date Migraine without status migrainosus, not intract able 09/04/2024 Assessment & Plan (11/09/2024 4:53 PM EDT): I advise to avoid migraine triggers like red wine, chocolate, cheese, strong perfumes I will start patient on amitriptyline 25 mg at bedtime Continue with sumatriptan 50 mg as needed I will refer her to neurology as per her request Assessment & Plan (09/04/2024 2:34 PM EDT): [...] (12/21/2023 2:17 PM EDT): See HPI Encounters * This document contains information received from the source organization and may not represent a complete record from that organization. Date Type Department Care Team Description 11/09/2024 3:15 PM EDT Office Visit [address] [address] Valarie May MD Migraine without status migrainosus, not intractable, unspecified migraine type 11/09/2024 Travel 11/06/2024 Telephone [facility] CHC MED & PEDS [address] [place], [place] [phone] Valarie May MD Chart Prep 11/02/2024 Patient Outreach [address] [address] Valarie May MD Pre-visit Planning (SDOH Screening negative and Tobacco screening negative) 11/02/2024 Travel 11/01/2024 10:00 AM EDT Office Visit [address] [address] Mariposa Markham ANP Migraine without status migrainosus, not intractable, unspecified migraine type (Primary Dx); Gastroesophageal reflux disease, unspecified whether esophagitis present; Nasal congestion 11/01/2024 Travel 11/01/2024 Telephone [facility] MEDICINE [address] [place] [address] Valarie May MD Nurse Triage 10/25/2024 Travel 10/23/2024 Refill [facility] MEDICINE [address] [place] [address] Deanna Kahn NP 09/05/2024 Results Follow-Up [address] [address] Deanna Kahn NP Chlamydia/N. Gonorrhoeae RNA, TMA, Urogenitial, POCT Urine 09/04/2024 1:30 PM EDT Office Visit [facility] [address] [place] [address] Deanna Kahn NP Migraine without status migrainosus, not intractable, unspecified migraine type (Primary Dx); Healthcare maintenance 09/04/2024 Travel 09/04/2024 Telephone [facility] MEDICINE [address] [place] [address] Valarie May MD Medication Question 08/30/[address] [phone] Valarie May MD Nurse Triage 08/16/2024 Orders Only [address] [phone] Valarie May MD Anemia, unspecified type (Primary Dx) 08/15/[address] [phone] Valarie May MD Medication Question from Last 3 Months Immunizations Immunization Administration [...] 20 11/09/2024 3:47 PM EDT Oxygen Saturation 99% 11/01/2024 10:09 AM EDT Inhaled Oxygen Concentration - - Weight 66.2 kg (146 lb) 11/09/2024 3:47 PM EDT Height 165.1 cm (5' 5 ) 11/09/2024 3:47 PM EDT Body Mass Index 24.3 11/09/2024 3:47 PM EDT Plan of Treatment Upcoming Encounters Date Type Department Care Team (Late st Contact Info) Description 11/30/2024 1:00 PM EDT Office Visit [facility] OPTOMETRY [address] [place], [place] [phone] Anthony, Lani, OD [address] [place] [address] 01/17/2025 10:15 AM EDT Office Visit [facility] MEDICINE [address] [place] [address] Valarie May MD [address] [place] [address] Health Maintenance Due Date Last Done Comments HIV Screening 2001 Pneumococcal Vaccine: Pediatrics (0 to 5 Years) and At-Risk Patients (6 to 49) Years (1 of 1 - PPSV23) 12/24/2007 10/24/2003, 10/22/2003, 07/05/2002, Additional history exists Family Planning (PISQ) 2016 Meningococcal B Vaccine (1 of 2 - Standard) 2017 Hepatitis C Screening 12/24/2019 Pap Smear 2022 COVID-19 Vaccine ( season) 2023 03/26/2021, 08/08/2020, 07/11/2020 Influenza Vaccine (#1) 2024 , 01/20/2022, 04/29/2020, Additional history exists Depression Monitoring 02/10/2025 08/10/2024, 025 Chlamydia and Gonorrhea Screening 09/04/2025 09/04/2024, 01/26/2023 Disability Screening 11/02/2025 11/02/2024 SDOH Screening 11/02/2025 11/02/2024 Alcohol/Substance Use Screening 11/09/2025 11/09/2024 Tobacco Screening 11/09/2025 11/09/2024 DTaP/Tdap/Td Vaccines (8 - Td or Tdap) 03/22/2027 03/22/2017, 01/27/2015, 04/07/2006, Additional history exists Lipid Panel 08/10/2029 08/10/2024 Zoster Vaccines (1 of 2) 12/24/2051 RSV Patients and Patients Aged 60 years or older (1 - 1-dose 75+ series) 2076 Hepatitis B Vaccines Completed 10/16/2002, 02/01/2002, 01/03/2002 HIB Vaccines Completed 04/10/2003, 07/03/2002, 05/04/2002, Additional history exists IPV Vaccines Completed 04/07/2006, 05/20, 07/05/2002, Additional history exists HPV Vaccines Completed 12/12/2014, 07/06/2013 Hepatitis A Vaccines Completed 03/22/2017, 05/13/19 11 Meningococcal Vaccine Completed 04/05/2019, 018 RSV under 20 months Aged Out No longe r eligible based on patient's age to complete this topic Rotavirus Vaccines Aged Out No longer eligible based on patient's age to complete this topic Procedures Procedure Name Priority Date/Time Associated Diagnosis Comments CHLAMYDIA/N. GONORRHOEAE RNA, TMA, UROGENITAL Routine 09/04/2024 2:01 PM EDT Healthcare maintenance POCT , URINE Routine 09/04/2024 2:00 PM EDT Healthcare maintenance LIPID PANEL, STANDARD Routine 08/10/2024 2:07 PM EDT Palpitations from Last 3 Months or Most Recently Relevant to Health Maintenance Results * Chlamydia/N. Gonorrhoeae RNA, TMA, Urogenitial (09/04/2024 2:01 PM EDT) CT PCR NOT DETECTED Not Detect. [facility] Comment:A not detected test result does not exclude the possibilityof infection because test results can be affected byimproper specimen collection, concurrent antibiotic therapy,or the number of organisms in the specimen which may bebelow the sensitivity of the test. As with many diagnostictests, results from the Xpert CT/NG assay should beinterpreted in conjunction with other laboratory andclinical data available to the clinician.Xpert CT/NG performance has not been evaluated in patientsless than 14 years of age. The assay should not be used forthe evaluationof suspected sexual abuse or for other medico-legalindications. Additional testing is recommended in anycircumstance when false positive or false negative resultscould lead to adverse medical, social or psychologicalconsequences. NG PCR NOT DETECTED Not Detect. [facility] Comment:A not detected test result does not exclude the possibilityof infection because test results can be affected byimproper specimen collection, concurrent antibiotic therapy,or the number of organisms in the specimen which may bebelow the sensitivity of the test. As with many diagnostictests, results from the Xpert CT/NG assay should beinterpreted in conjunction with other laboratory andclinical data available to the clinician.Xpert CT/NG performance has not been evaluated in patientsless than 14 years of age. The assay should not be used forthe evaluationof suspected sexual abuse or for other medico-legalindications. Additional testing is recommended in anycircumstance when false positive or false negative resultscould lead to adverse medical, social or psychologicalconsequences. Urine (Urine, Random) 09/04/2024 2:01 PM EDT 09/04/2024 4:31 PM EDT Narrative [facility] - 09/04/2024 6:44 PM EDT Urine Denana Kahn NP LAB MICROBIOLOGY - GENERAL ORDER DIONI Final Result [facility] [address] [place] [phone] * POCT Urine (09/04/2024 2:00 PM EDT) Preg Test, Ur Negative Negative, Indeterminate, None Detected, Invalid, Specimen unsatisfactory for evaluation, Weakly Positive, 2+ QC Media Lot # [id number] Lot# Expiration Date 12,026 QC TEST 0 Urine 09/04/2024 2:00 PM EDT Deanna Kahn NP POINT OF CARE TEST ENTER/EDIT OR DERABLES Final Result * Lipid Panel, Standard (08/10/2024 2:07 PM EDT) Triglycerides 60 <150 mg/dL [facility] Comment:Desirable Triglyceri de: less than 150 mg/dLBorderline High Triglyceride 150-199 mg/dLHigh Triglyceride: 200-499 mg/dLVery High Triglyceride: greater than or equal to 5OO mg/dL Cholesterol 171 <200 mg/dL [facility] Comment:Desirable Cholestero l: less than 200 mg/dLBorderline High Cholesterol: 200-239 mg/dLHigh Cholesterol: greater than 239 mg/dL LDL Cholesterol Calculated 95 <100 mg/dL [facility] Comment:Desirable LDL: less than 100 mg/dLNear Optimal/Above Optimal LDL: 110- 129 mg/dLBorderline High LDL: 130-159 mg/dLHigh LDL: 160-189 mg/dLVery High LDL: greater than or equal to 190 mg/dL HDL Cholesterol 64 >40 mg/dL [facility] Comment:Desirable HDL: great er than 40 mg/dL Note: This HDL assay may give artificially low results in patients with liver disease. Blood Venous blood specimen / Unknown 08/10/2024 2:07 PM EDT 08/10/2024 4:24 PM EDT us Bianka Eli MD LAB BLOOD ORDERABLES Final Res ult [facility] [address] [place] [phone] from Last 3 Months or Most Recently Relevant to Health Maintenance Insurance [facility] C3 HSN [employer]IAL Care Teams Application Engineer Relationship Specialty Start Date End Date Valarie May MD [address] [place] [phone] PCP - General Family Medicine 11/12/21
--- OUTSIDE RECORDS SUMMARY | 2024-11-12 22:58 | XMS_ITS | Encounter Summary ---
Author Organization [employer] Address [address] [facility] [address]t [place] [address] Care Team Providers Care Supervisor Transferring And Boxing Name Role Phone Valarie May MD Primary Care Provide r Reason for Visit * Reason Comments Med Refill Encounter Details Date Type Department Care Team ([facility] st Contact Info) Description 2023 Refill [facility] CHC MED & PEDS [address] [place], [place] [phone] Valarie May MD [address] [place] [address] Social History Tobacco Use Types Packs/Day Years Used Date Smoking Tobacco: Never Passive Smoke Exposure: Never Smokeless Tobacco: Never Alcohol Use Standard Drinks/Week Comments Yes 0 (1 standard drink = 0.6 oz pur e alcohol) Depression Answer Date Recorded Patient Health Questionnaire-9 Score 0 12/21/2023 Patient Health Questionnaire-9 Score 0 12/21/2023 Last PHQ-9: Questionnaire Data Not on file 1 Housing Stability Answer Date Recorded What is [...] Answer Date Recorded Patient Health Questionnaire-2 Score 0 12/21/2023 Comments No Sex and Gender Information Value [...] Description 11/30/2024 1:00 PM EDT Office Visit [facility] OPTOMETRY [address] [place] [address] Anthony, Lani, OD [address] [place] [address] 01/17/2025 10:15 AM EDT Office Visit [facility] MEDICINE [address] [place] [address] Valarie May MD [address] [place] [address] documented as of this encounter Visit Diagnoses Not on filedocumented in this encounter Additional Health Concerns Assessment Noted Time PHQ-9 Depression Total Score: 0 12/21/19 24 11:11 AM EDT documented as of this encounter Care Teams Supervisor Transferring And Boxing Relationship Specialty Start Date End Date Valarie May MD [address] [place], [place] [phone] PCP - General Family Medicine 11/12/21 documented as of this encounter
--- OUTSIDE RECORDS SUMMARY | 2024-11-12 22:58 | XMS_ITS | Encounter Summary ---
Author Organization [employer] Address [address] [place] [address] 7t [place] [address] Care Team Providers Care Manager Home Name Role Phone Valarie May MD Primary Care Provide r Reason for Visit * Reason Onset Date Comments Nurse Triage 01/25/2023 Encounter Details Date Type Department Care Team ([facility] st Contact Info) Description 01/25/2023 Telephone [facility] MEDICINE [address] [place], [place] [phone] Valarie May MD [address] [place], [place] [phone] Nurse Triage Social History Tobacco Use Types Packs/Day Years [...] AM EST documented as of this encounter Miscellaneous Notes * Telephone Encounter - Kelsy Lindsey RN - 01/25/2023 11:57 AM EST called pt to triage, spoke to pt. pt states several days duration of urinary burning, pressure, andfrequency but small amounts. pt denies known fever, rash, strong odor, vaginal discharge, vomiting,or other associated or severe symptoms. advised no available appt to schedule with PCP at this timeand was given appt tomorrow with Resident 1/Dr. Arrington preceptor at 3:30 for exam. pt also states having some spotting in between periods and would like to schedule possible PAP appt/pelvic exam toevaluate. advised will task to team BECKY to schedule appt with Daniel Morley as appropriate for PAP/Pelvic exam as appropriate. advised home care: rest, fluids, and call back as needed pt understands and agrees with plan. insurance verified. Protocol Used: Urinary Symptoms (Adult) Protocol-Based Disposition: See in Office or Video Visit Today or Tomorrow Video visit offer not recorded Positive Triage Question: * Patient wants to be seen * All higher-acuity triage questions were negative Care Advice Discussed: * Reasons To Call Back - Fever occurs - Pain or burning with urination - Unable to urinate and bladder feels full - You become worse * Telephone Encounter - Roberto Valencia - 01/25/2023 10:36 AM EST Symptoms: Menstrual Periods Absent or Missed, Urine Symptoms Outcome: Schedule a same-day appointment or talk to a nurse or provider today Reason: Caller denied all higher acuity questions The caller accepted this outcome Tc from patient calling in regards to menstrual period states she would bleed after menstrual period and urinating frequently. documented in this encounter Plan of Treatment Upcoming Encounters Date Type Department Care Team (Late st Contact Info) Description 11/30/2024 1:00 PM EDT Office Visit [facility] OPTOMETRY [address] [place] [address] Anthony, Lani, OD [address] [place] [address] 01/17/2025 10:15 AM EDT Office Visit [facility] MEDICINE [address] [place] [address] Valarie May MD [address] [place] [phone] documented as of this encounter Visit Diagnoses Not on filedocumented in this encounter Care Teams Manager Home Relationship Specialty Start Date End Date Valarie May MD [address] [place] [address] PCP - General Family Medicine 11/12/21 documented as of this encounter
--- OUTSIDE RECORDS SUMMARY | 2024-11-12 22:58 | XMS_ITS | Encounter Summary ---
Author Organization [employer] Address [address] [place] [address] 7 [place] [address] Care Team Providers Care Head Nurse Name Role Phone Valarie May MD Primary Care Provide r Encounter Details Date Type Department Care Team (Late Contact Info) Description 01/26/2023 Orders Only [facility] CHC MED & PEDS [address] [place], [place] [phone] Yanick Arrington MD [address] [place], [place] [phone] Bacterial vaginosis (Primary Dx) Social History Tobacco Use Types Packs/Day Years [...] AM EST documented as of this encounter Progress Notes * Yanick Arrington MD - 01/26/2023 4:34 PM EST Subjective Patient ID: Lucille Sr is a 22 y.o. female who presents for No chief complaint on file.. HPI Review of Systems Objective Physical Exam Assessment/Plan documented in this encounter Plan of Treatment Upcoming Encounters Date Type Department Care Team (Late Contact Info) Description 11/30/2024 1:00 PM EDT Office Visit [facility] OPTOMETRY [address] [place] [address] Lani Cruz, OD [address] [place] [address] 01/17/2025 10:15 AM EDT Office Visit [facility] MEDICINE [address] [place] [address] Valarie May MD [address] [place] [address] documented as of this encounter Visit Diagnoses Diagnosis Bacterial vaginosis- Primary Unspecified vaginitis and vulvovaginitis documented in this encounter Care Teams Head Nurse Relationship Specialty Start Date End Date Valarie May MD [address] [place], [place] [phone] PCP - General Family Medicine 11/12/21 documented as of this encounter
[2024-11-12 23:03] LABS: MANUAL DIFF FLAG NO
[2024-11-12 23:04] LABS: Hematocrit 31.6 % (37.0-47.0); Hemoglobin 10.7 g/dl (12.0-16.0); Imm Gran Abs Auto 0.02 X10*3/uL (0.00-0.03); Imm Gran Pct Auto 0.3 % (0.0-0.4); Lymphocytes Absolute Auto 2.3 X10*3/uL (1.2-4.9); Mean Corpuscular HGB Conc 33.9 g/dl (31.0-35.0); Mean Corpuscular Hemoglobin 28.6 pg (27.0-33.0); Mean Corpuscular Volume 84.5 fL (80.0-98.0); NRBC Abs Auto 0.000 X10*3/uL (0.0-0.012); NRBC Pct Auto 0.0 /100WBC (0.0-0.2); Platelet Count 332 X10*3/uL (160-400); Red Blood Count 3.74 X10*6/uL (4.20-5.50); White Blood Count 7.4 X10*3/uL (4.8-10.8)
[2024-11-12 23:18] LABS: Anion Gap 11 (12-20); Blood Urea Nitrogen 12 mg/dL (9-16); Calcium 9.4 mg/dL (8.4-10.2); Carbon Dioxide 24 mmol/L (22-29); Chloride 109 mmol/L (96-108); Creatinine Clr Calc Pharmacy 108.7; Estimated Glomerular Filt Rate > 60; Potassium 3.8 mmol/L (3.3-5.1); Sodium 140 mmol/L (135-145)
--- NOTE | 2024-11-13 01:48 | PC.NURSE ---
Patient medicated per MAR for 6/10 pain in LLQ.
--- NOTE | 2024-11-13 03:09 | ED.GENADULT ---
HPI - General Adult General Chief complaint: Vaginal Bleeding Stated complaint: vaginal bleeding, cramps radiating down l leg & ft Time Seen by Provider: 11/13/24 00:12 Source: patient Limitations: no limitations History of Present Illness ED Provider: Meron Rondon PA-C HPI narrative: 23-year-old otherwise healthy female presents with abnormal vaginal bleeding. Patient states she had her. The beginning of October, over the past 4 days she had noted new onset bleeding, passing small clots at time with a clear discharge. Today, the patient developed severe left lower quadrant/pelvic cramping that radiated down the leg. Pain has been intermittent. Denies known history of ovarian cysts, no risk factors for STD. Related Data Previous Rx's ?Medication ?Instructions ?Recorded doxycycline monohydrate 100 mg 100 mg PO BID 7 days #14 caps 05/25/20 capsule hydroxyzine HCl 25 mg tablet 25 mg PO TID PRN anxiety #20 tabs 08/16/22 ketorolac 10 mg tablet 10 mg PO Q6H PRN pain #20 tabs 11/13/24 Allergies Allergy/AdvReac Type Severity Reaction Status Date / Time No Known Allergies (No Known Allergy Verified 11/12/24 22:28 Allergies*) Review of Systems Review of Systems: Yes all other systems are reviewed and are negative Constitutional: Constitutional: Denies fatigue and Denies fever(s) Cardiovascular: Cardiovascular: Denies chest pain and Denies dyspnea Respiratory: Respiratory: Denies dyspnea Gastrointestinal: Gastrointestinal: Reports abdominal pain, Denies nausea and Denies vomiting Genitourinary: Genitourinary: Reports pelvic pain and Reports vaginal discharge Endocrine: Endocrine: Denies fatigue [facility] Past Medical History Attestation statement: The following information was validated with the patient. Medical History No known health problems No known health problems Social History Social History Alcohol intake: current Alcohol intake frequency: a few times a week Alcohol type: wine and hard liquor Substance Use Type: Marijuana Advance Directives: No Advance Directives Information Provided: No Do you have a plan to hurt others: No Plan Physical Exam ED Vital Signs: Vital Signs - 24 hr 11/12/24 22:23 Temperature 98 F Pulse Rate 82 Respiratory Rate 16 Blood Pressure 129/77 Pulse Oximetry 99 Oxygen Delivery Method Room Air BMI result Body Mass Index 23.6 Const Other: Alert well-appearing Orientation/consciousness: patient oriented x3 Resp Effort & Inspection: normal respiratory effort Cardio Other: Normal peripheral perfusion GI Other: Soft nondistended nontender no guarding Other: Deferred Skin Other: Warm dry no rash Neuro General: patient oriented x3, gait normal, no focal motor deficits and CN's II-XI intact bilaterally Psych Other: Cooperative Medications Administered Discontinued Medications Generic Name Dose Route Start Last Admin Trade Name Adamq PRN Reason Stop Dose Admin Ketorolac Tromethamine 15 mg 11/13/24 01:37 11/13/24 01:45 Ketorolac Tromethamine 15 Mg/Ml Vial IM 11/13/24 01:38 15 mg ONCE ONE Administration Medical Decision Making Medical Decision Making [facility] Narrative: 23-year-old otherwise healthy female presents with abnormal vaginal bleeding. Patient states she had her. The beginning of October, over the past 4 days she had noted new onset bleeding, passing small clots at time with a clear discharge. Today, the patient developed severe left lower quadrant/pelvic cramping that radiated down the leg. Pain has been intermittent. Denies known history of ovarian cysts, no risk factors for STD. No chronic issues History: Per patient I have considered the following differential diagnoses: Dysfunctional uterine bleeding, fibroids, ectopic, ruptured ovarian cysts, torsion Plan: Screening labs were obtained, I added on a , she is not , likely not ectopic. I am concerned for potential intermittent torsion given the nature of her symptoms. We will be obtaining a transvaginal ultrasound, giving Toradol. She has no risk factors for STD, she is involved in a monogamous relationship, deferring a pelvic as it is not clinically indicated. Her bleeding is minimal, it is just outside the regular window off her normal menstrual cycle. I have independently reviewed the following tests: Labs: No leukocytosis, not anemic, no electrolyte abnormality noted, not Transvaginal ultrasound:FINDINGS: Transabdominal scanning performed for overall anatomy. Transvaginal scanning performed for additional detail. The uterus measures 7.5 x 4.3 x 5.5 cm. Anteverted. No mass. Trace anechoic fluid in the endocervical canal, which could be physiologic. Normal endometrium measuring 17 mm in thickness. No endometrial mass. Right ovary: 4.7 x 1.9 x 1.9 cm. No mass. Normal color Doppler. Normal arterial and venous waveforms. No evidence of torsion. Left ovary: 4.1 x 2.5 x 3.0 cm. No mass. Normal color Doppler. Normal arterial and venous waveforms. No evidence of torsion. Left ovarian corpus luteum. Small physiologic anechoic free fluid in the cul-de-sac. IMPRESSION: No acute findings. Lab Data 11/12/24 22:54 11/12/24 22:54 Labs: Lab Results 11/12/24 Range/Units 22:54 WBC 7.4 (4.8-10.8) X10*3/uL RBC 3.74 L (4.20-5.50) X10*6/uL Hgb 10.7 L (12.0-16.0) g/dl Hct 31.6 L (37.0-47.0) % MCV 84.5 (80.0-98.0) fL MCH 28.6 (27.0-33.0) pg MCHC 33.9 (31.0-35.0) g/dl RDW 13.0 (11.0-16.0) % Plt Count 332 (160-400) X10*3/uL MPV 10.1 (9.4-12.3) fL Immature Gran % (Auto) 0.3 (0.0-0.4) % Neut % (Auto) 60.4 (45-73) % Lymph % (Auto) 30.8 (20-40) % [place] % (Auto) 7.3 (2-11) % Eos % (Auto) 0.5 (0-4) % Baso % (Auto) 0.7 (0-2) % Lymph # (Auto) 2.3 (1.2-4.9) X10*3/uL [place] # (Auto) 0.5 (0.1-1.2) X10*3/uL Eos # (Auto) 0.0 (0.0-0.4) X10*3/uL Baso # (Auto) 0.1 (0.0-0.2) X10*3/uL Abs Immat Gran (auto) 0.02 (0.00-0.03) X10*3/uL Absolute Neuts (auto) 4.4 (2.0-8.3) x10*3/uL Absolute Nucleated RBC 0.000 (0.0-0.012) X10*3/uL Nucleated RBC % (auto) 0.0 (0.0-0.2) /100WBC Sodium 140 (135-145) mmol/L Potassium 3.8 (3.3-5.1) mmol/L Chloride 109 H (96-108) mmol/L Carbon Dioxide 24 (22-29) mmol/L Anion Gap 11 L (12-20) BUN 12 (9-16) mg/dL Creatinine 0.73 (0.5-1.4) mg/dL Estim Creat Clear Calc 108.7 Estimated GFR > 60 Random Glucose 92 (60-115) mg/dL Calcium 9.4 (8.4-10.2) mg/dL Beta HCG, Quant < 2 mIU/mL Discharge Plan Discharge Clinical Impression: Cyst of left ovary, Dysfunctional uterine bleeding Patient Disposition: Home, Self-Care Instructions: Abnormal (Dysfunctional) Uterine Bleeding (ED), Ovarian Cyst (ED) Additional Instructions: All of your screening labs were normal you are not . Your blood counts were stable. The ultrasound revealed that you have a small left ovarian cyst. There were no other acute abnormalities. Keep your pending follow up with your foster care case manager. Use the ketorolac as needed for pelvic pain, especially when you have your menstrual cycle. The easiest way to self regulate your cycles, is to initiate control. You can have this discussion with your foster care case manager. Prescriptions: New ketorolac 10 mg tablet 10 mg PO Q6H PRN (Reason: pain) Qty: 20 0RF Rx Instructions: maximum total duration of 5 days from all oral, intranasal, or parenteral formulations. The patient received an intramuscular dose of Toradol here in the emergency room. No Action doxycycline monohydrate 100 mg capsule 100 mg PO BID 7 Days Qty: 14 0RF hydroxyzine HCl 25 mg tablet 25 mg PO TID PRN (Reason: anxiety) Qty: 20 0RF Stand Alone Forms: Work/School Release Print Language: Israeli
[2024-11-13 03:33] VITALS: BP 124/78; PULSE 76; RESP 16; TEMP 36.6; O2SAT 100
== END 2024-11-13 03:34 | disposition home or self-care (01) ==
PROVIDERS: Emergency Medicine; Physician Assistant Medical; Emergency Provider Emergency Medicine; PCP Internal Medicine
DX: N83.202 Unspecified ovarian cyst, left side (principal); N93.8 Other specified abnormal uterine and vaginal bleeding; N93.9 Abnormal uterine and vaginal bleeding, unspecified; R25.2 Cramp and spasm; R10.32 Left lower quadrant pain; R10.2 Pelvic and perineal pain
CPT/HCPCS: 36415; 76830; 76856; 80048; 84702; 85025; 93975; 96372; 99284; J1885

== ENCOUNTER → 2024-11-13 01:36 | Outpatient (BNV) | payer OTHER, SELFPAY | PROVIDERS: Emergency Provider Emergency Medicine; PCP Internal Medicine; Visit Provider Radiology Diagnostic Radiology | DX: N93.9 Abnormal uterine and vaginal bleeding, unspecified (principal) | CPT/HCPCS: 76830; 76856 ==

== ENCOUNTER 2024-12-12 11:04 | Outpatient (AMB) | payer MEDICAID, SELFPAY ==
--- NOTE | 2024-12-12 11:06 | MHC.OFFVIS ---
Vital Signs 12/12/24 11:11 Height 5 ft 5 in Weight 140 lb BMI 23.3 BP 120/72 Blood Pressure Location Rt brachial Position Sitting Respiration 16 Pulse 101 H Pulse Oximetry (%) 98 Intake Visit Reasons: ENP: Migraines, Worsening headaches Owner/Operator Required: No Allergies No Known Allergies (No Known Allergies*) Allergy (Verified 12/12/24 11:12) Medication List - Last Reconciled 12/12/24 by Emi Crocker CNP amitriptyline 10 mg PO BEDTIME 30 days famotidine 20 mg PO BID PRN fluticasone propionate 50 mcg/actuation 1 spray intranasal DAILY hydroxyzine HCl 25 mg PO TID PRN ibuprofen 800 mg PO Q12H PRN naratriptan take 1 tab at onset of headache; if no relief may repeat 1 tab after at least 4 hrs; max = 2 tabs/24 hrs PO Is last menstrual period known: No Post menopausal: No Patient : No HPI Comments Details: Lucille is a 23-year-old female patient with a past medical history of migraine, anxiety, depression, vitamin-D deficiency who was referred today for evaluation of her migraines. According to referral notes, her migraines have been worsening and she is having some adverse effects with her sumatriptan. She was recently started on amitriptyline 25 mg at bedtime for preventive measures. According to the patient today, her migraines began in July and have progressively worsened, now occurring approximately 14 days per month. The pain is primarily located on the left side but can shift to the right, affecting the temples and occasionally the back of the head, accompanied by neck and shoulder pain. The headaches are described as throbbing, with occasional stabbing sensations, particularly during a suspected sinus infection. The patient reports a family history of migraines, with both her mother and grandmother affected. She has not undergone any prior MRI imaging for her condition. Factors exacerbating her migraines include dehydration, hormonal changes related to her menstrual cycle, and stress. The patient has attempted various interventions, including ice packs, sleep, and ibuprofen, with varying degrees of relief. She has experienced adverse effects from sumatriptan, leading to discontinuation, and has not tried amitriptyline due to concerns about side effects. The patient also reports anxiety, which contributes to her sleep disturbances, and she occasionally uses hydroxyzine for severe anxiety episodes. Headache characteristics: Time of onset:About 1 year ago. Worse starting July of 2024 Location:Temporal L>R Radiation:Occipital and shoulder areas Positional component: No Character:Throbbing, dull, sharp, and aching. Severity:Can reach 10/10 Duration:2 weeks Frequency:Daily for 2 weeks at a time Acute aggravating factors:Dehydration Acute relieving factors:Ice or eating something cold. Rest/sleep Associated symptoms: Sensitivity to noise, numbness to her head and face, and nausea Aura:Notices more floaters or a knocking sensation in her head before onset Headache triggers:Sneezing can trigger severe head pain Relation to menses:Start during or after her menses Other related background information: Sleep:Wakes up 2-3 times throughout the night feeling anxious. Has taken hydroxyzine but makes her feel groggy in the morning. Stressors: Some relationship issues Hydration:Reports good hydration Caffeine intake: 1 coffe in the morning Alcohol intake:Weekend use of alcohol 3-4 each day Substance use:None Tobacco use:Rarely Last eye exam: Last week had a dilated exam. There was no abnormalities on exam. Last dental visit:Last year. Not aware of any grinding. History of head injury:Yes, had concussion in 5th grade and again in 2019. 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 [employer] Past medication trials: Sumatriptan- Tigheness sensation Prior workup: None [facility] Medical History (Updated 12/12/24 @ 11:52 by Emi Crocker CNP) Depression with anxiety Allergic dermatitis Atopic eczema Hematoma Seasonal allergies Difficulty sleeping Vitamin D deficiency Migraine Family History (Updated 12/10/24 @ 09:17 by Shiela Plaza CMA) Mother Depression with anxiety Maternal Grandmother Heart disease Hypertension Paternal Grandfather Kidney disease Social History Alcohol intake: current Alcohol intake frequency: a few times a week Alcohol type: wine and hard liquor Substance Use Type: Marijuana Review of Systems Const All systems reviewed & are unremarkable except as noted in HPI and below Physical Exam Vital Signs: Last Vital Signs Pulse 101 H 12/12/24 11:11 Resp 16 12/12/24 11:11 BP 120/72 12/12/24 11:11 Pulse Ox 98 12/12/24 11:11 BMI result Body Mass Index 23.3 Const General: cooperative, healthy appearing, comfortable and no acute distress Nutritional Appearance: well nourished Orientation/consciousness: patient oriented x3 Limitations: no limitations HEENT Head: Yes normal to inspection and Yes normocephalic Eyes General: appearance normal, both eyes and all related structures Visual Riddle: normal visual riddle by confrontation Alignment and Position: alignment normal Periorbital: periorbital findings normal Eyelids: Yes eyelids normal Conjunctivae: conjunctivae normal Sclerae: sclerae normal Direct Ophthalmoscopy: normal light reflex, no papilledema and fundi normal bilaterally Neck Neck: Yes normal visual inspection and Yes full ROM General: Yes no CVA tenderness Back/Spine/Pelvis Back: no CVA tenderness Cervical Spine: normal cervical lordosis Thoracic/Lumbar Spine: thoracic and lumbar spine normal to inspection Neuro General: patient oriented x3 and deep tendon reflexes 2+ bilaterally Cranial nerves: Yes CN's II-XII intact bilaterally and Yes Facial sensation intact/muscles of mastication intact Cognition (Neuro): normal cognition Gait exam (Neuro): Normal gait present Motor exam (neuro): 5/5 motor strength present throughout and no tremor noted Sensory Exam: double simultaneous stimulation for sensation normal Romberg Test: Negative Pupils: Normal pupillary reactivity/response: bilateral Psych Appearance: grossly normal Mental Status: mental status grossly normal Speech and movement: Normal speech and movement present and Clear speech present Affect: normal affect Attitude: cooperative Thought process: Normal thought process present Thought content: Normal thought content present Insight: Good insight present (Psych) Judgement: Good judgement present (Psych) Assessment & Plan Assessment & Plan (1) Migraine without aura and without status migrainosus, not intractable: Code(s): G43.009 - Migraine without aura, not intractable, without status migrainosus Category: Medical Plan: . (2) Worsening headaches: Code(s): R51.9 - Headache, unspecified Category: Medical Plan Lucille is a 23-year-old female patient with a past medical history of migraine, anxiety, depression, vitamin-D deficiency who was referred today for evaluation of her migraines. Migraines have been worsening which coincides with some sleep difficulties and anxiety. I suspect that may be playing a role in conjunction with her menses based on the pattern of her migraines. She does report head pain with sneezing and therefore I will obtain imaging including an MRI of the brain and MRA of the head. Her exam today was however normal. I did review with her in depth the first-line options available for migraine treatment. Because she is having some sleep difficulties, I do think that the amitriptyline may be a good fit for her. She does tell me she has been sensitive to sedatives in the past and therefore I will drop her amitriptyline dose from 25 mg to 10 mg and we can increase the dose based on response. For acute treatment, I will discontinue the sumatriptan and provide her with a trial of naratriptan 2.5 mg which is slower onset and tends to produce less symptoms. I will follow up with her in approximately 2 months after she has had her MR imaging. -trial of amitriptyline at a lower dose (10 mg nightly) -trial of naratriptan 2.5 mg for acute therapy (will discontinue the sumatriptan) -MRI brain and MRA head -Follow-up in 2 months or sooner if needed Orders: Orders MR head/brain wo con Today R51.9 - Headache, unspecified MR head/brain wo/w con Today R51.9 - Headache, unspecified Medications: New amitriptyline Take this medication at least 10-12hours before you plan to awake the next day to avoid morning drowsiness. 10 mg PO BEDTIME 30 tabs 5RF 30 days naratriptan take 1 tab at onset of headache; if no relief may repeat 1 tab after at least 4 hrs; max = 2 tabs/24 hrs PO 14 tabs 3RF Coding Level of Care Code New Pt Level 4 (42396) Diagnoses Migraine without aura and without status migrainosus, not intractable G43.009 Worsening headaches R51.9
[2024-12-12 11:11] VITALS: BP 120/72; PULSE 101; RESP 16; O2SAT 98; BMI 23.3
== END 2024-12-12 11:43 | disposition home or self-care (01) ==
LOC: HO.HSM 11:04
PROVIDERS: PCP Internal Medicine; Visit Provider Nurse Practitioner
DX: G43.009 Migraine without aura, not intractable, without status migrainosus (principal); R51.9 Headache, unspecified
CPT/HCPCS: 99204

== ENCOUNTER → 2024-12-12 11:04 | Outpatient (BNVA) | payer MEDICAID, SELFPAY | PROVIDERS: PCP Internal Medicine; Visit Provider Nurse Practitioner | DX: G43.009 Migraine without aura, not intractable, without status migrainosus (principal) | CPT/HCPCS: 99202 ==

== ENCOUNTER → 2025-01-05 15:14 | Outpatient (BNV) | payer MEDICAID, SELFPAY | PROVIDERS: PCP Internal Medicine; Visit Provider Radiology Diagnostic Radiology | DX: R51.9 Headache, unspecified (principal) | CPT/HCPCS: 70544; 70553 ==

== ENCOUNTER 2025-01-05 15:17 | Outpatient (REF) | payer MEDICAID, SELFPAY ==
--- OUTSIDE RECORDS SUMMARY | 2025-01-01 19:40 | XMS_ITS | Encounter Summary ---
Author Organization [employer] Address [address] [facility] 7t [place] [address] Care Team Providers Care Test Data Developer Name Role Phone Valarie May MD Primary Care Provide r Reason for Visit * Reason Comments Walk-In Ear pain Encounter Details Date Type Department Care Team ([facility] st Contact Info) Description 01/01/2025 7:40 PM EDT Office Visit [facility] [address] [place], [place] [phone] Kathy Traore MD [address], [place] [phone] Otalgia of both ears (Primary Dx); Neuralgia involving scalp Social History Tobacco Use Types Packs/Day Years [...] your housing situation today? I have chuy sing 11/02/[address] you li [...] Sign Reading Time Taken Comments Blood Pressure 125/84 01/01/2025 7:33 PM EDT Pulse 90 01/01/2025 7:33 PM EDT Temperature 36.9 C (98.5 F) 01/01/2025 7:33 PM EDT Respiratory Rate 20 01/01/2025 7:33 PM EDT Oxygen Saturation 98% 01/01/2025 7:33 PM EDT Inhaled Oxygen Concentration - - Weight 66.2 kg (146 lb) 01/01/2025 7:33 PM EDT Height - - Body Mass Index 24.3 11/09/2024 3:47 PM EDT documented in this encounter Progress Notes * Kathy Traore MD - 01/01/2025 7:40 PM EDT SUBJECTIVE: Lucille Sr is a 24 y.o. year old female who presents for Walk In Center/ear ache. Denies recent illness, injury, or hospitalization. Acute Concerns: Left sided ear ache, neck pain and left-sided headache x 1d. She had an episode of URI with chills,headache and dry cough and congestion 3d ago that mostly resolved. Her LMP was on 12/29/24 Social History Social History Narrative Not on file Problem List[1] Family History[2] Review of Systems Constitutional: Negative for chills, fatigue and fever. HENT: Positive for ear pain. Negative for congestion, nosebleeds, rhinorrhea, sinus pressure, sore throat and trouble swallowing. Eyes: Negative for pain and discharge. Respiratory: Negative for cough, chest tightness and shortness of breath. Cardiovascular: Negative for chest pain, palpitations and leg swelling. Gastrointestinal: Negative for abdominal pain, blood in stool, constipation, diarrhea and nausea. Endocrine: Negative for polydipsia and polyuria. Genitourinary: Negative for dysuria, frequency, genital sores, pelvic pain and vaginal discharge. Musculoskeletal: Negative for back pain and neck pain. Skin: Negative for rash. Allergic/Immunologic: Negative for environmental allergies. Neurological: Positive for headaches. Negative for dizziness, seizures, weakness and light-headedness. Hematological: Negative for adenopathy. Psychiatric/Behavioral: Negative for agitation, behavioral problems, self-injury and suicidal ideas. OBJECTIVE: Vitals: 01/01/25 1933 BP: 125/84 Pulse: 90 Resp: 20 Temp: 98.5 ??F (36.9 ??C) SpO2: 98% Physical Exam HENT: Head: Comments: Tenderness to palpation on left suboccipital, parietal temporal area Right Ear: Tympanic membrane and ear canal normal. No tenderness. Left Ear: Tympanic membrane and ear canal normal. No tenderness. Mouth/Throat: Mouth: Mucous membranes are moist. Pharynx: No oropharyngeal exudate or posterior oropharyngeal erythema. Eyes: Pupils: Pupils are equal, round, and reactive to light. Cardiovascular: Rate and Rhythm: Regular rhythm. Pulses: Normal pulses. Heart sounds: Normal heart sounds. No murmur heard. Pulmonary: Breath sounds: Normal breath sounds. Abdominal: General: Bowel sounds are normal. Palpations: Abdomen is soft. Tenderness: There is no abdominal tenderness. Musculoskeletal: General: Normal range of motion. Cervical back: Neck supple. Lymphadenopathy: Head: Right side of head: Submandibular adenopathy present. Left side of head: Submandibular adenopathy present. Cervical: Cervical adenopathy present. Skin: General: Skin is warm. Neurological: General: No focal deficit present. Mental Status: She is alert and oriented to person, place, and time. Psychiatric: Mood and Affect: Mood normal. Behavior: Behavior normal. Office Visit on 01/01/2025 Component Date Value Ref Range Status Influenza A 01/01/2025 Negative Negative, Indeterminate Final QC Media Lot # 01/01/2025 [id number] Final Lot# Expiration Date 01/01/2025 22,127 Final Influenza B 01/01/2025 Negative Negative, Indeterminate Final QC Media Lot # 01/01/2025 [id number] Final Lot# Expiration Date 01/01/2025 22,127 Final Rapid COVID Ag 01/01/2025 Negative Final QC Media Lot # 01/01/2025 [id number] Final Lot# Expiration Date 01/01/2025 82,226 Final Problem List Items Addressed This Visit Neuralgia involving scalp Most likely triggered by recent viral URI. Rx prednisone x 5 days Otalgia of both ears - Primary Right residual from URI, patient seems to have also left-sided occipital neuralgia. Use Tylenol as needed and heat to affected ear Explained that I do not see evidence of acute infection at this time Relevant Orders POCT Rapid Influenza A BAUTISTA ID NOW (Completed) POCT Rapid Influenza B BAUTISTA ID NOW (Completed) POCT Rapid Covid-19 BinaxNOW (Completed) Follow Up: Medications Ordered Prior to Encounter[3] [1] Patient Active Problem List Diagnosis Difficulty sleeping Microcytic anemia Mixed anxiety and depressive disorder Seasonal allergies Vitamin D deficiency Hematoma Atopic eczema Allergic dermatitis Eczema Family history of coronary artery disease in grandmother Migraine without status migrainosus, not intractable Healthcare maintenance Otalgia of both ears Neuralgia involving scalp [2] Family History Problem Relation Name Age of Onset Depression Mother Heart disease Maternal Grandmother Hypertension Maternal Grandmother Kidney disease Paternal Grandfather [3] Current Outpatient Medications on File Prior to Visit Medication Sig Dispense Refill amitriptyline (Elavil) 25 MG tablet Take 1 tablet (25 mg) by mouth at bedtime. 30 tablet 3 famotidine (Pepcid) 20 MG tablet Take 1 [...] at bedtime for itching. 60 tablet 2 ondansetron (Zofran) 4 MG tablet TAKE 1 TABLET BY MOUTH EVERY 12 (TWELVE) HOURS IF NEEDED FOR NAUSEA OR VOMITING FOR UP TO 10 DAYS. SUMAtriptan (Imitrex) 50 MG tablet Take 1 tablet (50 mg) by mouth 1 (one) time if needed for migraine. May repeat dose once in 2 hours if no relief. Do not exceed 2 doses in 24 hours. 9 tablet 0 No current facility-administered medications on file prior to visit. documented in this encounter Miscellaneous Notes * Assessment & Plan Note - Kathy Traore MD - 01/01/2025 7:50 PM EDT Associated Problem(s): Neuralgia involving scalp Most likely triggered by recent viral URI. Rx prednisone x 5 days * Assessment & Plan Note - Kathy Traore MD - 01/01/2025 7:50 PM EDT Associated Problem(s): Otalgia of both ears Right residual from URI, patient seems to have also left-sided occipital neuralgia. Use Tylenol as needed and heat to affected ear Explained that I do not see evidence of acute infection at this time documented in this encounter Plan of Treatment Upcoming Encounters Date Type Department Care Team (Late st Contact Info) Description 01/17/2025 10:15 AM EDT Office Visit [facility] [address] [place] [phone] Valarie May MD [address] [place] [address] 02/07/2025 10:15 AM EST Procedure Visit [address] [address] Valarie May MD [address] [place] [address] 03/01/2025 11:30 AM EST Office Visit [facility] [address] [place] [address] Kanu Carpenter MD [address] [place] [phone] documented as of this encounter Procedures Procedure Name Priority Date/Time Associated Diagnosis Comments POCT INFLUENZA B (ID NOW RAPID MOLECULAR) Routine 01/01/2025 7:40 PM EDT Otalgia of both ears POCT INFLUENZA A (ID NOW RAPID MOLECULAR) Routine 01/01/2025 7:40 PM EDT Otalgia of both ears POCT RAPID COVID ANTIGEN Routine 01/01/2025 7:40 PM EDT Otalgia of both ears documented in this encounter Results * POCT Rapid Covid-19 BinaxNOW (01/01/2025 7:40 PM EDT) Rapid COVID Ag Negative QC Media Lot # [id number] Lot# Expiration Date 82,226 Swab 01/01/2025 7:40 PM EDT Kathy Traore MD POINT OF CARE TEST ENTER /EDIT ORDERABLES Final Result * POCT Rapid Influenza B BAUTISTA ID NOW (01/01/2025 7:40 PM EDT) Influenza B Negative Negative, Indeterminate [facility] QC Media Lot # [id number] [facility] Lot# Expiration Date [facility] Swab 01/01/2025 7:40 PM EDT Kathy Traore MD POINT OF CARE TEST ENTER /EDIT ORDERABLES Final Result Performing Organization Address [facility] Co de Phone Number [facility] [address] [place] [address] [phone] * POCT Rapid Influenza A BAUTISTA ID NOW (01/01/2025 7:40 PM EDT) Influenza A Negative Negative, Indeterminate [facility] QC Media Lot # [id number] [facility] Lot# Expiration Date [facility] Swab 01/01/2025 7:40 PM EDT Kathy Traore MD POINT OF CARE TEST ENTER /EDIT ORDERABLES Final Result Performing Organization Address [facility] Co de Phone Number [facility] [address] [place] [address] [phone] documented in this encounter Visit Diagnoses Diagnosis Otalgia of both ears- Primary Neuralgia involving scalp documented in this encounter Additional Health Concerns Assessment Noted Time PHQ-9 Depression Total Score: 13 025 2:04 PM EDT documented as of this encounter Care Teams Test Data Developer Relationship Specialty Start Date End Date Valarie May MD [address] [place] [phone] PCP - General Family Medicine 11/12/21 documented as of this encounter
--- NOTE | ~2025-01-05 | MR_ITS ---
EXAMINATION: MR BRAIN WITHOUT AND WITH CONTRAST CLINICAL INFORMATION: Headache. R 51.9. COMPARISON: None available. TECHNIQUE: Multiplanar, multisequence MRI of the brain was obtained before and after the intravenous administration of 6.5 mL gadolinium based (Gadavist) without reported immediate complications.. FINDINGS: Limited by patient's motion artifact. No restricted diffusion. No acute intracranial hemorrhage, mass effect, midline shift, hydrocephalus or herniation. Ashley-white matter differentiation is normal. 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 No signal abnormality or enhancing lesion. Craniocervical junction is intact with normal position of the cerebellar tonsils. Flow-void signal within the main cerebral vessels is normal. No abnormal enhancement within the intra-axial or the extra-axial compartment of the cranium. MR/MR head/brain wo/w con IMPRESSION: No acute brain abnormality. No abnormal enhancement. Electronically signed by: Wilbert Ricketts MD 01/07/2025 07:41 AM EDT
--- NOTE | ~2025-01-05 | MR_ITS ---
EXAMINATION: MR ANGIOGRAPHY BRAIN WITHOUT CONTRAST CLINICAL INFORMATION: R 51.9. Headache. COMPARISON: None available. TECHNIQUE: 3-D [id number]. Maximum intensity projections [place]. FINDINGS: Patient's motion artifact. Anterior cerebral circulation: ICAs: No flow signal gap or abrupt cut off. ICA terminus demonstrated normal flow signal. MCA's: No flow signal gap or abrupt cut off. ACAs: No flow signal gap or abrupt cut off. Anterior communicating artery flow signal is faint and present. Ophthalmic arteries flow signal is normal. Posterior communicating arteries flow signal is not fully depicted on the exam. Posterior cerebral circulation: V3/V4 segment, Normal flow signal. No flow signal gap or intimal flap. Codominant. Left posterior inferior cerebral artery flow signal is normal. Right posterior inferior cerebellar artery flow signal is absent. Basilar artery flow signal is normal. Anterior inferior cerebral arteries flow signal is present, robust on the right side. Superior cerebellar arteries flow signal is normal. fire extinguisher technician: No flow signal gap or abrupt cut off. MR/MR angio head wo con IMPRESSION: No main cerebral artery occlusion or embolus or gross aneurysm. Right posterior inferior cerebral artery flow signal is not present. Electronically signed by: Wilbert Ricketts MD 01/07/2025 07:40 AM EDT
--- OUTSIDE RECORDS SUMMARY | 2025-01-05 15:21 | XMS_ITS | Encounter Summary ---
Author Organization [employer] Address [address] [place] [address] 7t [place] [address] Care Team Providers Care Manager Gallery Name Role Phone Valarie May MD Primary Care Provide r Reason for Visit * Reason Comments Med Change Request Encounter Details Date Type Department Care Team ([facility] st Contact Info) Description 12/02/2024 Refill [facility] [address] [place], [place] [phone] Valarie May MD [address] [place], [place] [phone] Migraine without status migrainosus, not intractable, unspecified [...] Description 01/17/2025 10:15 AM EDT Office Visit [address] [address] Valarie May MD [address] [place] [phone] 02/07/2025 10:15 AM EST Procedure Visit [address] [address] Valarie May MD [address] [place] [address] 03/01/2025 11:30 AM EST Office Visit [address] [address] Kanu Carpenter MD [address] [place] [phone] documented as of this encounter Visit Diagnoses Diagnosis Migraine without status migrainosus, not intractable, unspecified migraine type documented in this encounter Additional Health Concerns Assessment Noted Time PHQ-9 Depression Total Score: 13 025 2:04 PM EDT documented as of this encounter Care Teams Manager Gallery Relationship Specialty Start Date End Date Valarie May MD [address] [place] [phone] PCP - General Family Medicine 11/12/21 documented as of this encounter
--- OUTSIDE RECORDS SUMMARY | 2025-01-05 15:21 | XMS_ITS | Encounter Summary ---
Author Organization [employer] Address [address] [place] [address] 7 [place] [address] Care Team Providers Care Label Maker Name Role Phone Valarie May MD Primary Care Provide r Encounter Details Date Type Department Care Team (Late Contact Info) Description 01/26/2023 Orders Only [facility] [address] [place], [place] [phone] Yanick Arrington MD [address] [place], [place] [phone] Bacterial vaginosis (Primary Dx) Social History Tobacco [...] Description 01/17/2025 10:15 AM EDT Office Visit [address] [address] Valarie May MD [address] [place] [phone] 02/07/2025 10:15 AM EST Procedure Visit [address] [address] Valarie May MD [address] [place] [phone] 03/01/2025 11:30 AM EST Office Visit [address] [address] Kanu Carpenter MD [address] [place] [phone] documented as of this encounter Visit Diagnoses Diagnosis Bacterial vaginosis- Primary Unspecified vaginitis and vulvovaginitis documented in this encounter Care Teams Label Maker Relationship Specialty Start Date End Date Valarie May MD [address] [place] [phone] PCP - General Family Medicine 11/12/21 documented as of this encounter
--- OUTSIDE RECORDS SUMMARY | 2025-01-05 15:21 | XMS_ITS | Encounter Summary ---
Author Organization [employer] Address [address] [place] [address] 7t [place] [address] Care Team Providers Care Preventative Maintenance Technician Name Role Phone Valarie May MD Primary Care Provide r Reason for Visit * Reason Onset Date Comments Nurse Triage 01/25/2023 Encounter Details Date Type Department Care Team ([facility] st Contact Info) Description 01/25/2023 Telephone [facility] [address] [place], [place] [phone] Valarie May MD [address] [place], [place] [phone] Nurse Triage Social History Tobacco Use Types [...] Description 01/17/2025 10:15 AM EDT Office Visit [address] [address] Valarie May MD [address] [place] [address] 02/07/2025 10:15 AM EST Procedure Visit [address] [address] aVlarie May MD [address] [place] [address] 03/01/2025 11:30 AM EST Office Visit [facility] [address] [place] [address] Kanu Carpenter MD [address] [place] [address] documented as of this encounter Visit Diagnoses Not on filedocumented in this encounter Care Teams Preventative Maintenance Technician Relationship Specialty Start Date End Date Valarie May MD [address] [place] [phone] PCP - General Family Medicine 11/12/21 documented as of this encounter
--- OUTSIDE RECORDS SUMMARY | 2025-01-05 15:21 | XMS_ITS | Encounter Summary ---
Author Organization [employer] Address [address] [facility] 7t [place] [address] Care Team Providers Care Mill Feeder Name Role Phone Valarie May MD Primary Care Provide r Reason for Visit * Reason Comments Med Refill Encounter Details Date Type Department Care Team ([facility] st Contact Info) Description 2023 Refill [facility] [address] [place], [place] [phone] Valarie May MD [address] [place] [address] Social History Tobacco Use Types Packs/Day Years [...] Description 01/17/2025 10:15 AM EDT Office Visit [address] [address] Valarie May MD [address] [place] [address] 02/07/2025 10:15 AM EST Procedure Visit [address] [address] Valarie May MD [address] [place] [address] 03/01/2025 11:30 AM EST Office Visit [address] [address] Kanu Carpenter MD [address] [place] [phone] documented as of this encounter Visit Diagnoses Not on filedocumented in this encounter Additional Health Concerns Assessment Noted Time PHQ-9 Depression Total Score: 0 12/21/19 24 11:11 AM EDT documented as of this encounter Care Teams Mill Feeder Relationship Specialty Start Date End Date Valarie May MD [address] [place] [phone] PCP - General Family Medicine 11/12/21 documented as of this encounter
--- OUTSIDE RECORDS SUMMARY | 2025-01-05 15:21 | XMS_ITS | Encounter Summary ---
Author Organization [employer] Address [address] [place] [address] 7t [place] [address] Care Team Providers Care Dual Rate Supervisor Name Role Phone Valarie May MD Primary Care Provide r Reason for Visit * Reason Onset Date Comments Results 08/24/2022 Encounter Details Date Type Department Care Team ([facility] st Contact Info) Description 08/24/2022 Telephone [facility] [address] [place], [place] [phone] Valarie May MD [address] [place], [place] [phone] Results Social History Tobacco Use Types Packs/Day [...] Description 01/17/2025 10:15 AM EDT Office Visit [address] [address] Valarie May MD [address] [place] [address] 02/07/2025 10:15 AM EST Procedure Visit [address] [address] Valarie May MD [address] [place] [phone] 03/01/2025 11:30 AM EST Office Visit [address] [address] Kanu Carpenter MD [address] [place] [phone] documented as of this encounter Visit Diagnoses Not on filedocumented in this encounter Care Teams Dual Rate Supervisor Relationship Specialty Start Date End Date Valarie May MD [address] [place] [phone] PCP - General Family Medicine 11/12/21 documented as of this encounter
--- OUTSIDE RECORDS SUMMARY | 2025-01-05 15:21 | XMS_ITS | Clinical Summary ---
Author Organization [employer] Address [address] [place] [address] [address] [place] [address] Care Team Providers Care Acquisition Manager Name Role Phone Valarie May MD Primary Care Provide r Allergies No known active allergies Medications * This document contains information received from the source organization and may not represent a complete record from that organization. hydrOXYzine HCl (Atarax) 25 MG tabletIndication s:Mixed anxiety and depressive disorder Take 1 tablet (25 mg) by mouth if needed at bedtime for itching. 60 tablet 2 5 Active ferrous sulfate (Fe Tabs) 325 (65 Fe) MG EC tabletIndication s:Anemia, unspecified type Take 1 tablet (325 mg) by mouth every other day. Do not crush, chew, or split. 15 tablet 2 5 08/17/19 26 Active famotidine (Pepcid) 20 MG tabletIndication s:Gastroesophage al reflux disease, unspecified whether esophagitis present Take 1 tablet twice daily as needed for acid reflux 40 tablet 5 Active fluticasone (Flonase Allergy Relief) 50 MCG/ACT nasal sprayIndications :Nasal congestion Administer 1 spray into each nostril Once per day. Shake gently. Before first use, prime pump. After use, clean tip and replace cap. 16 g 2 5 11/02/19 26 Active SUMAtriptan (Imitrex) 50 MG tabletIndication s:Migraine without status migrainosus, not intractable, unspecified migraine type Take 1 tablet (50 mg) by mouth 1 (one) time if needed for migraine. May repeat dose once in 2 hours if no relief. Do not exceed 2 doses in 24 hours. 9 tablet 5 Active amitriptyline (Elavil) 25 MG tabletIndication s:Migraine without status migrainosus, not intractable, unspecified migraine type Take 1 tablet (25 mg) by mouth at bedtime. 30 tablet 3 5 Active ondansetron (Zofran) 4 MG tablet TAKE 1 TABLET BY MOUTH EVERY 12 (TWELVE) HOURS IF NEEDED FOR NAUSEA OR VOMITING FOR UP TO 10 DAYS. 5 Active predniSONE (Deltasone) 20 MG tablet Take 1 tablet (20 mg) by mouth Once per day for 5 days. 5 tablet 5 01/07/20 25 Active Active Problems Problem Noted Date Diagnosed Date Otalgia of both ears 01/01/2025 Assessment & Plan (01/01/2025 7:50 PM EDT): Right residual from URI, patient seems to have also left-sided occipital neuralgia. Use Tylenol as needed and heat to affected ear Explained that I do not see evidence of acute infection at this time Neuralgia involving scalp 01/01/2025 Assessment & Plan (01/01/2025 7:50 PM EDT): Most likely triggered by recent viral URI. Rx prednisone x 5 days Migraine without status migrainosus, not intract able [...] Encounters Date Type Department Care Team Description 01/01/2025 7:40 PM EDT Office Visit [facility] [address] [place] [address] Kathy Traore MD Otalgia of both ears (Primary Dx); Neuralgia involving scalp 12/21/2024 Population [facility] Department [address] [id number] Provider, [facility] [place]Note 2] Generic 12/02/2024 Refill [facility] [address] [place] [phone] Valarie May MD Migraine without status migrainosus, not intractable, unspecified migraine type 11/30/2024 1:00 PM EDT Office Visit [facility] [address] [place] [address] Anthony, Lani, OD Alternating esotropia (Primary Dx); Myopia of right eye 11/29/2024 Telephone [facility] [address] [place], [place] [phone] Valarie May MD NOV RECALL 11/23/2024 Travel 11/12/2024 Orders Only [facility] External Provider, [facility] 11/09/2024 3:15 PM EDT Office Visit [facility] [address] [place] [phone] Valarie May MD Migraine without status migrainosus, not intractable, unspecified migraine type 11/09/2024 Travel 11/06/2024 Telephone [facility] [address] [place], [place] [phone] Valarie May MD Chart Prep 11/02/2024 Patient Outreach [facility] [address] [place] [phone] Valarie May MD Pre-visit Planning (SDOH Screening negative and Tobacco screening negative) 11/02/2024 Travel 11/01/2024 10:00 AM EDT Office Visit [facility] [address] [place] [address] Mariposa Markham ANP Migraine without status migrainosus, not intractable, unspecified migraine type (Primary Dx); Gastroesophageal reflux disease, unspecified whether esophagitis present; Nasal congestion 11/01/2024 Travel 11/01/2024 Telephone [facility] [address], [place] [phone] Valarie May MD Nurse Triage 10/25/2024 Travel 10/23/2024 Refill [facility] [address], [place] [phone] Deanna Kahn NP from Last 3 Months Immunizations Immunization Administration [...] is your housing situation today? I have chuyarlene carver 11/02/[address] you [...] (146 lb) 01/01/2025 7:33 PM EDT Height 165.1 cm (5' 5 ) 11/09/2024 3:47 PM EDT Body Mass Index 24.3 11/09/2024 3:47 PM EDT Plan of Treatment Upcoming Encounters Date Type Department Care Team (Late st Contact Info) Description 01/17/2025 10:15 AM EDT Office Visit [facility] [address] [place] [phone] Valarie May MD [address] [place] [phone] 02/07/2025 10:15 AM EST Procedure Visit [address] [address] Valarie May MD [address] [place] [phone] 03/01/2025 11:30 AM EST Office Visit [address] [address] Kanu Carpenter MD [address] [place] [phone] Health Maintenance Due Date Last Done Comments HIV Screening 2001 Pneumococcal Vaccine: Pediatrics (0 to 5 Years) and At-Risk Patients (6 to 49) Years (1 of 1 - PPSV23) 12/24/2007 10/24/2003, 10/22/2003, 07/05/2002, Additional history exists Family Planning (PISQ) 2016 Meningococcal B Vaccine (1 of 2 - Standard) 2017 Hepatitis C Screening 12/24/2019 Pap Smear 2022 COVID-19 Vaccine ( season) 2024 03/26/2021, 08/08/2020, 07/11/2020 Influenza Vaccine (#1) 2024 , 01/20/2022, 04/29/2020, Additional history exists Depression Monitoring 02/10/2025 08/10/2024, 025 Chlamydia and Gonorrhea Screening 09/04/2025 09/04/2024, 01/26/2023 Disability Screening 11/02/2025 11/02/2024 SDOH Screening 11/02/2025 11/02/2024 Alcohol/Substance Use Screening 11/09/2025 11/09/2024 Tobacco Screening 12/03/2025 12/03/2024 DTaP/Tdap/Td Vaccines (8 - Td or Tdap) 03/22/2027 03/22/2017, 01/27/2015, 04/07/2006, Additional history exists Lipid Panel 08/10/2029 08/10/2024 Zoster Vaccines (1 of 2) 12/24/2051 RSV Patients and Patients Aged 60 years or older (1 - 1-dose 75+ series) 2076 Hepatitis B Vaccines Completed 10/16/2002, 02/01/2002, 01/03/2002 HIB Vaccines Completed 04/10/2003, 0703/2002, 05/04/2002, Additional history exists IPV Vaccines Completed [...] Name Priority Date/Time Associated Diagnosis Comments POCT RAPID COVID ANTIGEN Routine 01/01/2025 7:40 PM EDT Otalgia of both ears POCT INFLUENZA B (ID NOW RAPID MOLECULAR) Routine 01/01/2025 7:40 PM EDT Otalgia of both ears POCT INFLUENZA A (ID NOW RAPID MOLECULAR) Routine 01/01/2025 7:40 PM EDT Otalgia of both ears US PELVIC OVARIAN DOPPLER Routine 11/13/2024 2:49 AM EDT US PELVIS TRANSVAGINAL Routine 11/13/2024 2:49 AM EDT CHLAMYDIA/N. GONORRHOEAE RNA, TMA, UROGENITAL Routine 09/04/2024 2:01 PM EDT Healthcare maintenance LIPID PANEL, STANDARD Routine 08/10/2024 2:07 PM EDT Palpitations from Last 3 Months or Most Recently Relevant to Health Maintenance Results * POCT Rapid Influenza B BAUTISTA ID NOW (01/01/2025 7:40 PM EDT) Influenza B Negative Negative, Indeterminate [facility] QC Media Lot # [id number] [facility] Lot# Expiration Date [facility] Swab 01/01/2025 7:40 PM EDT Kathy Traore MD POINT OF CARE TEST ENTER /EDIT ORDERABLES Final Result Performing Organization Address City/State/[facility] Co de Phone Number [facility] [address] [place] [phone] * POCT Rapid Influenza A BAUTISTA ID NOW (01/01/2025 7:40 PM EDT) Influenza A Negative Negative, Indeterminate [facility] QC Media Lot # [id number] [facility] Lot# Expiration Date [facility] Swab 01/01/2025 7:40 PM EDT Kathy Traore MD POINT OF CARE TEST ENTER /EDIT ORDERABLES Final Result [facility] [address] [place] [phone] * POCT Rapid Covid-19 BinaxNOW (01/01/2025 7:40 PM EDT) Rapid COVID Ag Negative QC Media Lot # [id number] Lot# Expiration Date Swab 01/01/2025 7:40 PM EDT us Kathy Traore MD POINT OF CARE TEST ENTER /EDIT ORDERABLES Final Result * US PELVIC OVARIAN DOPPLER (11/13/2024 2:49 AM EDT) Anatomical Region Laterality Modality Abdomen Ultrasound 11/13/2024 2:49 AM EDT Narrative 11/18/2024 2:01 PM EDT [address] [address] Ultrasound Report Signed Patient: Lucille Sr MR#: [id number] [birth year] : 2000 Acct:[id number] Age/Sex: 23 / F ADM Date: 11/12/24 Loc: HO.ED Attending Dr: Ordering Physician: Meron Rondon Date of Service: 11/13/24 Procedure(s): US pelvic ovarian doppler Accession Number(s): [id number] cc: Valarie May MD; Meron Rondon CLINICAL HISTORY: pain torsion r o US Pelvis Transabdominal and Transvaginal US Arteries Abdomen/Pelvis Doppler, Ovaries, Complete COMPARISON: None provided FINDINGS: Transabdominal scanning performed for overall anatomy. Transvaginal scanning performed for additional detail. The uterus measures 7.5 x 4.3 x 5.5 cm. Anteverted. No mass. Trace anechoic fluid in the endocervical canal, which could be physiologic. Normal endometrium measuring 17 mm in thickness. No endometrial mass. Right ovary: 4.7 x 1.9 x 1.9 cm. No mass. Normal color Doppler. Normal arterial and venous waveforms. No evidence of torsion. Left ovary: 4.1 x 2.5 x 3.0 cm. No mass. Normal color Doppler. Normal arterial and venous waveforms. No evidence of torsion. Left ovarian corpus luteum. Small physiologic anechoic free fluid in the cul-de-sac. IMPRESSION: No acute findings. This document has been electronically signed by: Timbo Croft MD on 11/13/2024 02:49:32 Dictated By: Timbo Croft MD Signed By: <Electronically signed by Timbo Croft MD in OV> 11/18/24 1401 DD/ 8 TD/TT: 11/13/24248 Director Of Email Marketing: Procedure Note Donotuseinterpreter, Image - 11/18/2024 [place] [address] Ultrasound Report Signed Patient: Lucille SrMR#: [id number] [birth year] : 2000Acct:[id number] Age/Sex: 23 / FADM Date: 11/12/24 Loc: .ED Attending Dr: Ordering Physician: Meron Rondon Date of Service: 11/13/24 Procedure(s): US pelvic ovarian doppler Accession Number(s): [id number] cc: Valarie May MD; Meron Rondon CLINICAL HISTORY: pain torsion r o US Pelvis Transabdominal and Transvaginal US Arteries Abdomen/Pelvis Doppler, Ovaries, Complete COMPARISON: None provided FINDINGS: Transabdominal scanning performed for overall anatomy. Transvaginal scanning performed for additional detail. The uterus measures 7.5 x 4.3 x 5.5 cm. Anteverted. No mass. Trace anechoic fluid in the endocervical canal, which could be physiologic. Normal endometrium measuring 17 mm in thickness. No endometrial mass. Right ovary: 4.7 x 1.9 x 1.9 cm. No mass. Normal color Doppler. Normal arterial and venous waveforms. No evidence of torsion. Left ovary: 4.1 x 2.5 x 3.0 cm. No mass. Normal color Doppler. Normal arterial and venous waveforms. No evidence of torsion. Left ovarian corpus luteum. Small physiologic anechoic free fluid in the cul-de-sac. IMPRESSION: No acute findings. This document has been electronically signed by: Timbo Croft MD on 11/13/2024 02:49:32 Dictated By: Timbo Croft MD Signed By: <Electronically signed by Timbo Croft MD in OV> 11/18/24 1401 DD/ 8 TD/TT: 11/13/24248 Director Of Email Marketing: us [facility] External Provider IMG US PROCEDURES Final Result * US Pelvis Transvaginal (11/13/2024 2:49 AM EDT) Anatomical Region Laterality Modality Pelvis Ultrasound 11/13/2024 2:49 AM EDT Narrative 11/13/2024 2:51 AM EDT [address] [address] Ultrasound Report Signed Patient: Lucille Sr MR#: [id number] 06 : 2000 Acct:[id number] Age/Sex: 23 / F ADM Date: 11/12/24 Loc: HO.ED Attending Dr: Ordering Physician: Meron Rondon Date of Service: 11/13/24 Procedure(s): US pelvic and transvaginal Accession Number(s): [id number] cc: Valarie May MD; Meron Rondon CLINICAL HISTORY: pain torsion r o US Pelvis Transabdominal and Transvaginal US Arteries Abdomen/Pelvis Doppler, Ovaries, Complete COMPARISON: None provided FINDINGS: Transabdominal scanning performed for overall anatomy. Transvaginal scanning performed for additional detail. The uterus measures 7.5 x 4.3 x 5.5 cm. Anteverted. No mass. Trace anechoic fluid in the endocervical canal, which could be physiologic. Normal endometrium measuring 17 mm in thickness. No endometrial mass. Right ovary: 4.7 x 1.9 x 1.9 cm. No mass. Normal color Doppler. Normal arterial and venous waveforms. No evidence of torsion. Left ovary: 4.1 x 2.5 x 3.0 cm. No mass. Normal color Doppler. Normal arterial and venous waveforms. No evidence of torsion. Left ovarian corpus luteum. Small physiologic anechoic free fluid in the cul-de-sac. IMPRESSION: No acute findings. This document has been electronically signed by: Timbo Croft MD on 11/13/2024 02:49:32 Dictated By: Timbo Croft MD Signed By: <Electronically signed by Timbo Croft MD in OV> 11/13/24 025 DD/ 8 TD/TT: 11/13/24248 Director Of Email Marketing: Procedure Note Donotuseinterpreter, Image - 11/13/[address] [address] Ultrasound Report Signed Patient: Carolee Sr#: [id number] [birth year] : 2000Acct:[id number] Age/Sex: 23 / FADM Date: 11/12/24 Loc: .ED Attending Dr: Ordering Physician: Meron Rondon Date of Service: 11/13/24 Procedure(s): US pelvic and transvaginal Accession Number(s): [id number] cc: Valarie May MD; Meron Rondon CLINICAL HISTORY: pain torsion r o US Pelvis Transabdominal and Transvaginal US Arteries Abdomen/Pelvis Doppler, Ovaries, Complete COMPARISON: None provided FINDINGS: Transabdominal scanning performed for overall anatomy. Transvaginal scanning performed for additional detail. The uterus measures 7.5 x 4.3 x 5.5 cm. Anteverted. No mass. Trace anechoic fluid in the endocervical canal, which could be physiologic. Normal endometrium measuring 17 mm in thickness. No endometrial mass. Right ovary: 4.7 x 1.9 x 1.9 cm. No mass. Normal color Doppler. Normal arterial and venous waveforms. No evidence of torsion. Left ovary: 4.1 x 2.5 x 3.0 cm. No mass. Normal color Doppler. Normal arterial and venous waveforms. No evidence of torsion. Left ovarian corpus luteum. Small physiologic anechoic free fluid in the cul-de-sac. IMPRESSION: No acute findings. This document has been electronically signed by: Timbo Croft MD on 11/13/2024 02:49:32 Dictated By: Timbo Croft MD Signed By: <Electronically signed by Timbo Croft MD in OV> 11/13/24 025 DD/ 8 TD/TT: 11/13/24248 Director Of Email Marketing: [facility] External Provider IMG US PROCEDURES Final Result * Chlamydia/N. Gonorrhoeae RNA, TMA, Urogenitial (09/04/2024 2:01 PM EDT) CT PCR NOT DETECTED Not Detect. [facility] Comment:A not detected test [...] psychologicalconsequences. NG PCR NOT DETECTED Not Detect. [facility] Comment:A not detected test [...] PM EDT 09/04/2024 4:31 PM EDT Narrative [facility] - 09/04/2024 6:44 PM EDT Urine us Deanna Kahn CASINO INVESTIGATOR LAB MICROBIOLOGY - GENERAL ORDER DIONI Final Result Performing Organization Address [facility] Co de Phone Number [facility] [address] [place] [phone] * Lipid Panel, Standard (08/10/2024 2:07 PM EDT) Triglycerides 60 <150 mg/dL [facility] Comment:Desirable Triglyceri de: less than 150 mg/dLBorderline High Triglyceride 150-199 mg/dLHigh Triglyceride: 200-499 mg/dLVery High Triglyceride: greater than or equal to 5OO mg/dL Cholesterol 171 <200 mg/dL [facility] Comment:Desirable Cholestero l: less than 200 mg/dLBorderline High Cholesterol: 200-239 mg/dLHigh Cholesterol: greater than 239 mg/dL LDL Cholesterol Calculated 95 <100 mg/dL [facility] Comment:Desirable LDL: less than 100 mg/dLNear Optimal/Above Optimal LDL: 110- 129 mg/dLBorderline High LDL: 130-159 mg/dLHigh LDL: 160-189 mg/dLVery High LDL: greater than or equal to 190 mg/dL HDL Cholesterol 64 >40 mg/dL [facility] Comment:Desirable HDL: great er than 40 mg/dL Note: This HDL assay may give artificially low results in patients with liver disease. Blood Venous blood specimen / Unknown 08/10/2024 2:07 PM EDT 08/10/2024 4:24 PM EDT us Bianka Eli MD LAB BLOOD ORDERABLES Final Res ult Performing Organization Address [facility] Co de Phone Number [facility] [address] [place] [phone] from Last 3 Months or Most Recently Relevant to Health Maintenance Insurance [employer] [employer] Care Teams Acquisition Manager Relationship Specialty Start Date End Date Valarie May MD [address] [place] [phone] PCP - General Family Medicine 11/12/21
== END 2025-01-05 15:18 | disposition home or self-care (01) ==
LOC: HO.MRI 15:17
PROVIDERS: PCP Internal Medicine; Visit Provider Nurse Practitioner
DX: R51.9 Headache, unspecified (principal)
CPT/HCPCS: 70544; 70553; A9585

== ENCOUNTER 2025-01-30 10:28 | Outpatient (AMB) | payer MEDICAID, SELFPAY ==
--- NOTE | 2025-01-30 10:32 | A.OFFVIS_ITS ---
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 She was originally referred for evaluation of migraines. At time of last visit, she was getting approximately 14 headache days per month primarily left-sided but could shift of the right affecting the temporal areas and occasionally occipital areas. Headaches were accompanied by neck and shoulder p ain described as a throbbing sensation with occasional stabbing sensations. Her menstrual cycles were playing a large role in her headaches. Sleep was also a factor. She has been given amitriptyline at last visit though has been has been to use it due to possibility of side effects. She also had experienced some anxiety side effects with sumatriptan and had stopped using that as well. At the time of our last visit, I recommended that she try a very low-dose of amitriptyline 1st where side effect profile was low. We also discussed switching to naratriptan that has been more favorable tolerability opposed to sumatriptan. She was agreeable to this plan. Today however she tells me that since our last visit, her headaches have improved after she started a more regimented sleep routine. She also received new glasses after an eye exam with the [facility]. She is now getting 1 headache every 2 weeks or so but headaches still can last a couple of these. Headaches are much worse during the time her menses and generally start 2 days before her menstrual cycle begins. Headache characteristics: Time of onset:About 1 year ago. Worse starting July of 2024 Location:Temporal L>R Radiation:Occipital and shoulder areas Positional component: No Character:Throbbing, dull, sharp, and aching. Severity:Can reach 10/10 Duration: 2-3 days Frequency: Once every 2 weeks but could last a couple of days at a time. Acute aggravating factors:Dehydration Acute relieving factors:Ice or eating something cold. Rest/sleep Associated symptoms: Sensitivity to noise, numbness to her head and face, and nausea Aura:Notices more floaters or a knocking sensation in her head before onset Headache triggers:Sneezing can trigger severe head pain Relation to menses:Start during or after her menses Other related background information: Sleep:Wakes up 2-3 times throughout the night feeling anxious. Has taken hydroxyzine but makes her feel groggy in the morning. Stressors: Some relationship issues Hydration:Reports good hydration Caffeine intake: 1 coffe in the morning Alcohol intake:Weekend use of alcohol 3-4 each day Substance use:None Tobacco use:Rarely Last eye exam: Last week had a dilated exam. There was no abnormalities on exam. Last dental visit:Last year. Not aware of any grinding. History of head injury:Yes, had concussion in 5th grade and again in 2019. 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 No abnormal enhancement. 01/05/2025 MRA of the head IMPRESSION: No main cerebral artery occlusion or embolus or gross aneurysm. Right posterior inferior cerebral artery flow signal is not present. [facility] Medical History (Updated 12/12/24 @ 11:52 by Emi Crocker CNP) Depression with anxiety Allergic dermatitis Atopic eczema Hematoma Seasonal allergies Difficulty sleeping Vitamin D deficiency Migraine Family History (Updated 12/10/24 @ 09:17 by Shiela Plaza CMA) Mother Depression with anxiety Maternal Grandmother Heart disease Hypertension Paternal Grandfather Kidney disease Social History Alcohol intake: current Alcohol intake frequency: a few times a week Alcohol type: wine and hard liquor Substance Use Type: Marijuana Review of Systems Const All systems reviewed & are unremarkable except as noted in HPI and below Physical Exam Vital Signs: Last Vital Signs Pulse 70 01/30/25 10:42 Resp 17 01/30/25 10:42 BP 110/70 01/30/25 10:42 Pulse Ox 99 01/30/25 10:42 Oxygen Delivery Method Room Air 01/30/25 10:42 BMI result Body Mass Index 23.3 Const General: cooperative, healthy appearing, comfortable and no acute distress Nutritional Appearance: well nourished Orientation/consciousness: patient oriented x3 Limitations: no limitations HEENT Head: Yes normal to inspection and Yes normocephalic Eyes General: appearance normal, both eyes and all related structures Visual Riddle: normal visual riddle by confrontation Alignment and Position: alignment normal Periorbital: periorbital findings normal Eyelids: Yes eyelids normal Conjunctivae: conjunctivae normal Sclerae: sclerae normal Neck Neck: Yes normal visual inspection and Yes full ROM General: Yes no CVA tenderness Back/Spine/Pelvis Back: no CVA tenderness Cervical Spine: normal cervical lordosis Thoracic/Lumbar Spine: thoracic and lumbar spine normal to inspection Neuro General: patient oriented x3 Cranial nerves: Yes CN's II-XII intact bilaterally and Yes Facial sensation intact/muscles of mastication intact Cognition (Neuro): normal cognition Gait exam (Neuro): Normal gait present Motor exam (neuro): no tremor noted Romberg Test: Negative Pupils: Normal pupillary reactivity/response: bilateral Psych Appearance: grossly normal Mental Status: mental status grossly normal Speech and movement: Normal speech and movement present and Clear speech present Affect: normal affect Attitude: cooperative Thought process: Normal thought process present Thought content: Normal thought content present Insight: Good insight present (Psych) Judgement: Good judgement present (Psych) Assessment & Plan Assessment & Plan (1) Migraine without aura and without status migrainosus, not intractable: Code(s): G43.009 - Migraine without aura, not intractable, without status migrainosus Category: Medical Plan Lucille is a 23-year-old female patient with a past medical history of migraine, anxiety, depression, vitamin-D deficiency who is following-up today for headaches. Headaches have improved after modification of some environmental and lifestyle changes including sleep schedule and glasses. She is happy with the outcome and would like to hold off on preventive therapy for now. We did however discuss use of naratriptan as abortive therapy and for a mini prophylaxis starting 2 days before her menstrual cycle x5 days total. She would like to try this. I did still stand a refill on the amitriptyline should she decide to take it if headaches ramp up between now and our next visit. I will see her back in 3 months or sooner if needed. -naratriptan 2.5 mg for acute therapy/breakthrough migraine as well as for a mini prophylaxis during menses. Patient was advised to start the naratriptan daily 2 days before her menstrual cycle starts and continue for 5 days. -may consider starting amitriptyline 10 mg nightly for preventive therapy. Patient will hold off on dosing but we will start of headaches ramp up before our next visit. Medications: Refilled naratriptan take 1 tab at onset of headache; if no relief may repeat 1 tab after at least 4 hrs; max = 2 tabs/24 hrs PO 14 tabs 3RF amitriptyline Take this medication at least 10-12hours before you plan to awake the next day to avoid morning drowsiness. 10 mg PO BEDTIME 30 tabs 5RF 30 days Coding Level of Care Code Est Pt Level 3 (08478) Diagnoses Migraine without aura and without status migrainosus, not intractable G43.009
[2025-01-30 10:42] VITALS: BP 110/70; PULSE 70; RESP 17; O2SAT 99; BMI 23.3
--- OUTSIDE RECORDS SUMMARY | 2025-01-30 12:33 | XMS_ITS | Encounter Summary ---
Author Organization [employer] Address [address] [place] [address] [address] [place] [address] Care Team Providers Care Safe Deposit Clerk Name Role Phone Valarie May MD Primary Care Provide r Reason for Visit * Reason Onset Date Comments Results 08/24/2022 Encounter Details Date Type Department Care Team ([facility] st Contact Info) Description 08/24/2022 Telephone [facility] [address] [place], [place] [phone] Valarie May MD [address] [place], [place] [phone] Results Social History Tobacco Use Types Packs/Day [...] Care Team (Late st Contact Info) Description 02/07/2025 10:15 AM EST Procedure Visit [address] [address] Valarie May MD [address] [place] [address] [phone] 03/01/2025 11:30 AM EST Office Visit [facility] [address] [place], [place] [phone] Kanu Carpenter MD [address] [place], [place] [phone] documented as of this encounter Visit Diagnoses Not on filedocumented in this encounter Care Teams Safe Deposit Clerk Relationship Specialty Start Date End Date Valarie May MD [address] [place] [address] [phone] PCP - General Family Medicine 11/12/21 documented as of this encounter
--- OUTSIDE RECORDS SUMMARY | 2025-01-30 12:33 | XMS_ITS | Encounter Summary ---
Author Organization [employer] Address [address] [facility] [address] [place] [address] Care Team Providers Care Grocery Shopper Name Role Phone Valarie May MD Primary Care Provide r Reason for Visit * Reason Comments Med Refill Encounter Details Date Type Department Care Team ([facility] st Contact Info) Description 2023 Refill [facility] [address] [place], [place] [phone] Valarie May MD [address] [place] [address] Social History Tobacco Use Types Packs/Day Years [...] Description 02/07/2025 10:15 AM EST Procedure Visit [facility] [address] [place] [phone] Valarie May MD [address] [place] [phone] 03/01/2025 11:30 AM EST Office Visit [address] [address] Kanu Carpenter MD [address] [place] [phone] documented as of this encounter Visit Diagnoses Not on filedocumented in this encounter Additional Health Concerns Assessment Noted Time PHQ-9 Depression Total Score: 0 12/21/19 11:11 AM EDT documented as of this encounter Care Teams Grocery Shopper Relationship Specialty Start Date End Date Valarie May MD [address] [place] [phone] PCP - General Family Medicine 11/12/21 documented as of this encounter
--- OUTSIDE RECORDS SUMMARY | 2025-01-30 12:33 | XMS_ITS | Encounter Summary ---
Author Organization [employer] Address [address] [place] [address] [address] [place] [address] Care Team Providers Care Device Processing Engineer Name Role Phone Valarie May MD Primary Care Provide r Reason for Visit * Reason Onset Date Comments Nurse Triage 01/25/2023 Encounter Details Date Type Department Care Team ([facility] st Contact Info) Description 01/25/[address] [facility] MED[facility]INE [address] [place], [place] [phone] Valarie May MD [address] [place], [place] [phone] Nurse Triage Social History Tobacco Use Types [...] Description 02/07/2025 10:15 AM EST Procedure Visit [facility] [address] [place] [phone] Valarie May MD [address] [place] [phone] 03/01/2025 11:30 AM EST Office Visit [facility] [address] [place] [phone] Kanu Carpenter MD [address] [place] [phone] documented as of this encounter Visit Diagnoses Not on filedocumented in this encounter Care Teams Device Processing Engineer Relationship Specialty Start Date End Date Valarie May MD [address] [place] [phone] PCP - General Family Medicine 11/12/21 documented as of this encounter
--- OUTSIDE RECORDS SUMMARY | 2025-01-30 12:33 | XMS_ITS | Encounter Summary ---
Author Organization [employer] Address [address] [place] [address] [address] [place] [address] Care Team Providers Care Medication Nurse Name Role Phone Valarie May MD Primary Care Provide r Encounter Details Date Type Department Care Team (Late Contact Info) Description 01/26/2023 Orders Only [facility] [address] [place], [place] [phone] Yanick Arrington MD [address] [place], [place] [phone] Bacterial vaginosis (Primary Dx) Social History Tobacco [...] Department Care Team (Late Contact Info) Description 02/07/2025 10:15 AM EST Procedure Visit [address] [address] Valarie May MD [address] [place] [phone] 03/01/2025 11:30 AM EST Office Visit [address] [address] Kanu Carpenter MD [address] [place] [phone] documented as of this encounter Visit Diagnoses Diagnosis Bacterial vaginosis- Primary Unspecified vaginitis and vulvovaginitis documented in this encounter Care Teams Medication Nurse Relationship Specialty Start Date End Date Valarie May MD [address] [place] [phone] PCP - General Family Medicine 11/12/21 documented as of this encounter
--- OUTSIDE RECORDS SUMMARY | 2025-01-30 12:33 | XMS_ITS | Encounter Summary ---
Author Organization [employer] Address [address] [place] [address] [address] [place] [address] Care Team Providers Care Log Washer Name Role Phone Valarie May MD Primary Care Provide r Reason for Visit * Reason Comments Med Change Request Encounter Details Date Type Department Care Team ([facility] st Contact Info) Description 12/02/2024 Refill [facility] [address] [place], [place] [phone] Valarie May MD [address] [place], [place] [phone] Migraine without status migrainosus, not intractable, unspecified [...] Description 02/07/2025 10:15 AM EST Procedure Visit [facility] [address] [place] [phone] Valarie May MD [address] [place] [phone] 03/01/2025 11:30 AM EST Office Visit [facility] [address] [place] [phone] Kanu Carpenter MD [address] [place] [phone] documented as of this encounter Visit Diagnoses Diagnosis Migraine without status migrainosus, not intractable, unspecified migraine type documented in this encounter Additional Health Concerns Assessment Noted Time PHQ-9 Depression Total Score: 13 025 2:04 PM EDT documented as of this encounter Care Teams Log Washer Relationship Specialty Start Date End Date Valarie May MD [address] [place] [phone] PCP - General Family Medicine 11/12/21 documented as of this encounter
--- OUTSIDE RECORDS SUMMARY | 2025-01-30 12:33 | XMS_ITS | Clinical Summary ---
Author Organization [employer] Address [address] [place] [address] 7[address] [place] [address] Care Team Providers Care Sample Weaver Name Role Phone Valarie May MD Primary [...] for 5 days. 5 tablet 5 01/07/20 Active Problems Problem Noted Date Diagnosed Date [...] Encounters Date Type Department Care Team Description 01/18/2025 Telephone [facility] [address] [place] [address] Valarie May MD MAKEDA RECALL 01/16/2025 Telephone [facility] [address] [place] [address] Valarie May MD chart prep 01/10/2025 Patient Outreach [facility] [address] [place], [place] [phone] Valarie May MD Pre-visit Planning (SDOH unable to reach LVM ) 01/08/2025 1:00 PM EDT Office Visit [facility] [address] [place] [address] Anthony, Lani, OD Myopia of right eye (Primary Dx) 01/05/2025 Orders Only [facility] External Provider, [facility] 01/01/2025 7:40 PM EDT Office Visit [facility] [address] [place] [phone] Kathy Traore MD Otalgia of both ears (Primary Dx); Neuralgia involving scalp 12/21/2024 Population Health Risk Score [facility] Department [address] [phone] Provider, Population Health Generic 12/02/2024 Refill [facility] [address] [place] [address] Valarie May MD Migraine without status migrainosus, not intractable, unspecified migraine type 11/30/2024 1:00 PM EDT Office Visit [facility] [address] [place] [address] Anthony, Lani, OD Alternating esotropia (Primary Dx); Myopia of right eye 11/29/2024 Telephone [facility] [address] [place] [address] Valarie May MD NOV RECALL 11/23/2024 Travel 11/12/2024 Orders Only [facility] External Provider, [facility] 11/09/2024 3:15 PM EDT Office Visit [address] [address] Valarie May MD Migraine without status migrainosus, not intractable, unspecified migraine type 11/09/2024 Travel 11/06/2024 Telephone [facility] [address] [place] [address] Valarie May MD Chart Prep 11/02/2024 Patient Outreach [address] [address] Valarie May MD Pre-visit Planning (SDOH Screening negative and Tobacco screening negative) 11/02/2024 Travel 11/01/2024 10:00 AM EDT Office Visit [address] [address] aMriposa [place] ANP Migraine without status migrainosus, not intractable, unspecified migraine type (Primary Dx); Gastroesophageal reflux disease, unspecified whether esophagitis present; Nasal congestion 11/01/2024 Travel 11/01/[address] [address] Valarie May MD Nurse Triage from Last [...] Description 02/07/2025 10:15 AM EST Procedure Visit [facility] [address] [place] [address] Valarie May MD [address] [place] [phone] 03/01/2025 11:30 AM EST Office Visit [facility] [address] [place] [phone] Kanu Carpenter MD [address] [place] [phone] Health Maintenance Due Date Last Done Comments HIV Screening 2001 Pneumococcal Vaccine: Pediatrics (0 to 5 Years) and At-Risk Patients (6 to 49) Years (1 of 1 - PPSV23, PCV20, or PCV21) 12/24/2007 10/24/2003, 10/22/2003, 07/05/2002, Additional history exists Meningococcal B Vaccine (1 of 4 - Increased Risk) 12/24/2011 Family Planning (PISQ) 2016 Hepatitis C Screening 12/24/2019 Pap Smear 2022 Meningococcal Vaccine (3 - Risk 2-dose series) 04/05/2024 04/05/2019, 03/22/2017 COVID-19 Vaccine ( season) 2024 03/26/2021, 08/08/2020, [...] Hepatitis A Vaccines Completed 03/22/2017, 05/13/19 11 RSV under 20 months Aged Out No longe r eligible based on patient's age to complete this topic Rotavirus Vaccines Aged Out No longer eligible based on patient's age to complete this topic Procedures Procedure Name Priority Date/Time Associated Diagnosis Comments MR BRAIN W AND WO CONTRAST Routine 01/05/2025 3:37 PM EDT MRA HEAD WO CONTRAST Routine 01/05/2025 3:28 PM EDT POCT RAPID COVID ANTIGEN Routine 01/01/2025 7:40 [...] Recently Relevant to Health Maintenance Results * Mr Brain w/ and w/o Contrast (01/05/2025 3:37 PM EDT) Anatomical Region Laterality Modality Brain Magnetic Resonan ce 01/05/2025 3:37 PM EDT Narrative 01/07/2025 7:44 AM EDT [address] [address] Magnetic Resonance Report Signed Patient: Lucille Sr MR#: [id number] [birth year] : 2000 Acct:[id number] Age/Sex: 24 / F ADM Date: 01/05/25 Loc: HO.MRI Attending Dr: Emi Crocker CNP Ordering Physician: Emi Crocker CNP Date of Service: 01/05/25 Procedure(s): MR head/brain wo/w con Accession Number(s): [id number] cc: Valarie May MD; Emi Crocker CNP Reason for Exam: R51.9 - Headache, unspecified EXAMINATION: MR BRAIN WITHOUT AND WITH CONTRAST CLINICAL INFORMATION: Headache. R 51.9. COMPARISON: None available. TECHNIQUE: Multiplanar, multisequence MRI of the brain was obtained before and after the intravenous administration of 6.5 mL gadolinium based (Gadavist) without reported immediate complications.. FINDINGS: Limited by patient's motion artifact. No restricted diffusion. No acute intracranial hemorrhage, mass effect, midline shift, hydrocephalus or herniation. Ashley-white matter differentiation is normal. 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 No signal abnormality or enhancing lesion. Craniocervical junction is intact with normal position of the cerebellar tonsils. Flow-void signal within the main cerebral vessels is normal. No abnormal enhancement within the intra-axial or the extra-axial compartment of the cranium. MR/MR head/brain wo/w con IMPRESSION: No acute brain abnormality. No abnormal enhancement. Electronically signed by: Wilbert Ricketts MD 01/07/2025 07:41 AM EDT Dictated By: Wilbert Packer MD Signed By: <Electronically signed by Wilbert Silva MD in OV> 01/07/25 0741 DD/ 1537 TD/TT: 01/05/25 1558 Trades Helper: Procedure Note Donotuseinterpreter, Image - 01/07/[address] [address] Magnetic Resonance Report Signed Patient: Lucille SrMR#: [id number] [birth year] : 2000Acct:[id number] Age/Sex: 24 / FADM Date: 01/05/25 Loc: HO.MRI Attending Dr: Emi Crocker CNP Ordering Physician: Emi Crocker CNP Date of Service: 01/05/25 Procedure(s): MR head/brain wo/w con Accession Number(s): [id number] cc: Valarie May MD; Emi Crocker CNP Reason for Exam: R51.9 - Headache, unspecified EXAMINATION: MR BRAIN WITHOUT AND WITH CONTRAST CLINICAL INFORMATION: Headache. R 51.9. COMPARISON: None available. TECHNIQUE: Multiplanar, multisequence MRI of the brain was obtained before and after the intravenous administration of 6.5 mL gadolinium based (Gadavist) without reported immediate complications.. FINDINGS: Limited by patient's motion artifact. No restricted diffusion. No acute intracranial hemorrhage, mass effect, midline shift, hydrocephalus or herniation. Ashley-white matter differentiation is normal. 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 No signal abnormality or enhancing lesion. Craniocervical junction is intact with normal position of the cerebellar tonsils. Flow-void signal within the main cerebral vessels is normal. No abnormal enhancement within the intra-axial or the extra-axial compartment of the cranium. MR/MR head/brain wo/w con IMPRESSION: No acute brain abnormality. No abnormal enhancement. Electronically signed by: Wilbert Ricketts MD 01/07/2025 07:41 AM EDT Dictated By: Wilbert Packer MD Signed By: <Electronically signed by Wilbert Silva MDin OV> 01/07/25 0741 DD/ 1537 TD/TT: 01/05/25 1558 Trades Helper: us [facility] External Provider IMG MRI PROCEDURES Edited Result - Final * MRA Head w/o Contrast (01/05/2025 3:28 PM EDT) Anatomical Region Laterality Modality Head, Neck Magnetic Resonan ce 01/05/2025 3:28 PM EDT Narrative 01/07/2025 7:43 AM EDT [address] [address] Magnetic Resonance Report Signed Patient: Lucille Sr MR#: [id number] [birth year] : 2000 Acct:[id number] Age/Sex: 24 / F ADM Date: 01/05/25 Loc: HO.MRI Attending Dr: Emi Crocker CNP Ordering Physician: Emi Crocker CNP Date of Service: 01/05/25 Procedure(s): MR angio head wo con Accession Number(s): [id number] cc: Valarie May MD; Emi Crocker CNP Reason for Exam: R51.9 - Headache, unspecified EXAMINATION: MR ANGIOGRAPHY BRAIN WITHOUT CONTRAST CLINICAL INFORMATION: R 51.9. Headache. COMPARISON: None available. TECHNIQUE: 3-D [id number]. Maximum intensity projections [place]. FINDINGS: Patient's motion artifact. Anterior cerebral circulation: ICAs: No flow signal gap or abrupt cut off. ICA terminus demonstrated normal flow signal. MCA's: No flow signal gap or abrupt cut off. ACAs: No flow signal gap or abrupt cut off. Anterior communicating artery flow signal is faint and present. Ophthalmic arteries flow signal is normal. Posterior communicating arteries flow signal is not fully depicted on the exam. Posterior cerebral circulation: V3/V4 segment, Normal flow signal. No flow signal gap or intimal flap. Codominant. Left posterior inferior cerebral artery flow signal is normal. Right posterior inferior cerebellar artery flow signal is absent. Basilar artery flow signal is normal. Anterior inferior cerebral arteries flow signal is present, robust on the right side. Superior cerebellar arteries flow signal is normal. dairy nutrition consultant: No flow signal gap or abrupt cut off. MR/MR angio head wo con IMPRESSION: No main cerebral artery occlusion or embolus or gross aneurysm. Right posterior inferior cerebral artery flow signal is not present. Electronically signed by: Wilbert Ricketts MD 01/07/2025 07:40 AM EDT Dictated By: Wilbert Packer MD Signed By: <Electronically signed by Wilbert Silva MD in OV> 01/07/25 0740 DD/ 1528 TD/TT: 01/05/25 1537 Trades Helper: Procedure Note Donotuseinterpreter, Image - 01/07/[address] [address] Magnetic Resonance Report Signed Patient: Lucille SrMR#: [id number] [birth year] : 2000Acct:[id number] Age/Sex: 24 / FADM Date: 01/05/25 Loc: HO.MRI Attending Dr: Emi Crocker CNP Ordering Physician: Emi Crocker CNP Date of Service: 01/05/25 Procedure(s): MR angio head wo con Accession Number(s): [id number] cc: Valarie May MD; Emi Crocker CNP Reason for Exam: R51.9 - Headache, unspecified EXAMINATION: MR ANGIOGRAPHY BRAIN WITHOUT CONTRAST CLINICAL INFORMATION: R 51.9. Headache. COMPARISON: None available. TECHNIQUE: 3-D [id number]-gr-[id number]. Maximum intensity projections [place]. FINDINGS: Patient's motion artifact. Anterior cerebral circulation: ICAs: No flow signal gap or abrupt cut off. ICA terminus demonstrated normal flow signal. MCA's: No flow signal gap or abrupt cut off. ACAs: No flow signal gap or abrupt cut off. Anterior communicating artery flow signal is faint and present. Ophthalmic arteries flow signal is normal. Posterior communicating arteries flow signal is not fully depicted on the exam. Posterior cerebral circulation: V3/V4 segment, Normal flow signal. No flow signal gap or intimal flap. Codominant. Left posterior inferior cerebral artery flow signal is normal. Right posterior inferior cerebellar artery flow signal is absent. Basilar artery flow signal is normal. Anterior inferior cerebral arteries flow signal is present, robust on the right side. Superior cerebellar arteries flow signal is normal. dairy nutrition consultant: No flow signal gap or abrupt cut off. MR/MR angio head wo con IMPRESSION: No main cerebral artery occlusion or embolus or gross aneurysm. Right posterior inferior cerebral artery flow signal is not present. Electronically signed by: Wilbert Ricketts MD 01/07/2025 07:40 AM EDT Dictated By: Wilbert Packer MD Signed By: <Electronically signed by Wilbert Silva MDin OV> 01/07/25 0740 DD/ 1528 TD/TT: 01/05/25 1537 Trades Helper: Result [facility] External Provider IMG MRI PROCEDURES Edited Result - Final * POCT Rapid Influenza B BAUTISTA ID NOW (01/01/2025 7:40 PM EDT) Influenza B Negative Negative, Indeterminate [facility] QC Media Lot # [id number] [facility] Lot# Expiration Date [facility] Swab 01/01/2025 7:[address] [facility] Kathy Traore MD POINT OF CARE TEST ENTER /EDIT ORDERABLES Final Result Performing Organization Address [facility]/ZIP Co de Phone Number [facility] [address] [place] [phone] * POCT Rapid Influenza A BAUTISTA ID NOW (01/01/2025 7:40 PM EDT) Influenza A Negative Negative, Indeterminate [facility] QC Media Lot # [id number] [facility] Lot# Expiration Date [facility] Swab 01/01/2025 7:[address] [facility] Kathy Traore MD POINT OF CARE TEST ENTER /EDIT ORDERABLES Final Result Performing Organization Address [facility]/ZIP Co de Phone Number [facility] [address] [place] [phone] * POCT Rapid Covid-19 BinaxNOW (01/01/2025 7:40 PM EDT) Rapid COVID Ag Negative QC Media Lot # [id number] Lot# Expiration Date [id number] Swab 01/01/2025 7:40 PM EDT us Kathy Traore MD POINT OF CARE TEST ENTER /EDIT ORDERABLES Final Result * US PELVIC OVARIAN DOPPLER (11/13/2024 2:49 AM EDT) Anatomical Region Laterality Modality Abdomen Ultrasound 11/13/2024 2:49 AM EDT Narrative 11/18/2024 2:01 PM EDT [address] [address] Ultrasound Report Signed Patient: Lucille Sr MR#: [id number] 06 : 2000 Acct:[id number] Age/Sex: 23 / F ADM Date: 11/12/24 Loc: HO.ED Attending Dr: Ordering Physician: Meron Rondon Date of Service: 11/13/24 Procedure(s): US pelvic ovarian doppler Accession Number(s): [id number] cc: Valarie May MD; Meron Rondon CLINICAL [...] OV> 11/18/24 1401 DD/ 8 TD/TT: 11/13/24248 Trades Helper: Procedure Note Donotuseinterpreter, Image - 11/18/[address] [address] Ultrasound Report Signed Patient: Carolee Sr#: [id number] [birth year] : 2000Acct:[id number] Age/Sex: 23 / FADM Date: 11/12/24 Loc: HO.ED Attending Dr: Ordering Physician: Meron Rondon Date of Service: 11/13/24 Procedure(s): US pelvic ovarian doppler Accession Number(s): [id number] cc: Valarie May MD; Meron Rondon CLINICAL [...] OV> 11/18/24 1401 DD/ 8 TD/TT: 11/13/24248 Trades Helper: us [facility] External Provider IMG US PROCEDURES Final Result * US Pelvis Transvaginal (11/13/2024 2:49 AM EDT) Anatomical Region Laterality Modality Pelvis Ultrasound 11/13/2024 2:49 AM EDT Narrative 11/13/2024 2:51 AM EDT [address] [address] Ultrasound Report Signed Patient: Lucille Sr MR#: [id number] 06 : 2000 Acct:[id number] Age/Sex: 23 / F ADM Date: 11/12/24 Loc: HO.ED Attending Dr: Ordering Physician: Meron Rondon Date of Service: 11/13/24 Procedure(s): US pelvic and transvaginal Accession Number(s): [id number] cc: Valarie May MD; Meron Rondon CLINICAL [...] by Timbo Croft MD in OV> 11/13/24 0251 DD/ 8 TD/TT: 11/13/24248 Trades Helper: Procedure Note Donotuseinterpreter, Image - 11/13/[address] [address] Ultrasound Report Signed Patient: Lucille SrMR#: [id number] [birth year] : 2000Acct:[id number] Age/Sex: 23 / FADM Date: 11/12/24 Loc: HO.ED Attending Dr: Ordering Physician: Meron Rondon Date of Service: 11/13/24 Procedure(s): US pelvic and transvaginal Accession Number(s): [id number] cc: Valarie May MD; Meron Rondon CLINICAL [...] Croft MD in OV> 11/13/24 025 DD/ 024 TD/TT: 11/13/24 024 Trades Helper: [facility] External Provider IMG US PROCEDURES Final Result * Chlamydia/N. Gonorrhoeae RNA, TMA, Urogenitial (09/04/2024 2:01 PM EDT) CT PCR NOT DETECTED Not Detect. [facility] Comment:A not detected test result does [...] psychologicalconsequences. NG PCR NOT DETECTED Not Detect. [facility] Comment:A not detected test result does [...] PM EDT 09/04/2024 4:31 PM EDT Narrative [facility] - 09/04/2024 6:44 PM EDT Urine us Deanna Kahn NP LAB MICROBIOLOGY - GENERAL ORDER DIONI Final Result [facility] [address] [place] [phone] * Lipid Panel, Standard (08/10/2024 2:07 PM EDT) Triglycerides 60 <150 mg/dL [facility] Comment:Desirable Triglyceri de: less than 150 mg/dLBorderline High Triglyceride 150-199 mg/dLHigh Triglyceride: 200-499 mg/dLVery High Triglyceride: greater than or equal to 5OO mg/dL Cholesterol 171 <200 mg/dL [facility] Comment:Desirable Cholestero l: less than 200 mg/dLBorderline High Cholesterol: 200-239 mg/dLHigh Cholesterol: greater than 239 mg/dL LDL Cholesterol Calculated 95 <100 mg/dL [facility] Comment:Desirable LDL: less than 100 mg/dLNear Optimal/Above Optimal LDL: 110- 129 mg/dLBorderline High LDL: 130-159 mg/dLHigh LDL: 160-189 mg/dLVery High LDL: greater than or equal to 190 mg/dL HDL Cholesterol 64 >40 mg/dL [facility] Comment:Desirable HDL: great er than 40 mg/dL Note: This HDL assay may give artificially low results in patients with liver disease. Blood Venous blood specimen / Unknown 08/10/2024 2:07 PM EDT 08/10/2024 4:24 PM EDT us Bianka Eli MD LAB BLOOD ORDERABLES Final Res ult [facility] [address] [place] [phone] from Last 3 Months or Most Recently Relevant to Health Maintenance Insurance [facility] C3 HSN PARTIAL Care Teams Sample Weaver Relationship Specialty Start Date End Date Valarie May MD [address] [place] [phone] PCP - General Family Medicine 11/12/21
== END 2025-01-30 11:02 | disposition home or self-care (01) ==
LOC: HO.HSM 10:29
PROVIDERS: PCP Internal Medicine; Visit Provider Nurse Practitioner
DX: G43.009 Migraine without aura, not intractable, without status migrainosus (principal)
CPT/HCPCS: 99213

== ENCOUNTER → 2025-01-30 10:28 | Outpatient (BNVA) | payer MEDICAID, SELFPAY | PROVIDERS: PCP Internal Medicine; Visit Provider Nurse Practitioner | DX: G43.009 Migraine without aura, not intractable, without status migrainosus (principal) | CPT/HCPCS: 99212 ==

== ENCOUNTER 2025-02-21 00:26 | Emergency (ER) | payer MEDICAID, SELFPAY ==
--- NOTE | ~2025-02-21 | XR_ITS ---
CLINICAL HISTORY: sob CHEST X-RAY FRONTAL VIEW COMPARISON: None provided. FINDINGS: A single frontal view of the chest was performed. The cardiac size and mediastinal silhouette are within normal limits. The lungs are clear. There are no acute infiltrates or pleural effusions. There is no pneumothorax. IMPRESSION: 1. No acute disease. This document has been electronically signed by: Nicanor Shukla M.D. on 02/21/2025 01:17:56
[2025-02-21 00:28] VITALS: BP 135/8; PULSE 112; RESP 20; TEMP 37.1; O2SAT 100
[2025-02-21 00:46] LABS: MANUAL DIFF FLAG NO
[2025-02-21 00:57] LABS: Hematocrit 34.4 % (37.0-47.0); Hemoglobin 11.1 g/dl (12.0-16.0); Imm Gran Abs Auto 0.01 X10*3/uL (0.00-0.03); Imm Gran Pct Auto 0.1 % (0.0-0.4); Lymphocytes Absolute Auto 3.3 X10*3/uL (1.2-4.9); Mean Corpuscular HGB Conc 32.3 g/dl (31.0-35.0); Mean Corpuscular Hemoglobin 27.5 pg (27.0-33.0); Mean Corpuscular Volume 85.1 fL (80.0-98.0); NRBC Abs Auto 0.000 X10*3/uL (0.0-0.012); NRBC Pct Auto 0.0 /100WBC (0.0-0.2); Platelet Count 347 X10*3/uL (160-400); Red Blood Count 4.04 X10*6/uL (4.20-5.50); White Blood Count 8.3 X10*3/uL (4.8-10.8)
[2025-02-21 01:01] LABS: Alanine Aminotransferase 13 U/L (0-31); Albumin Level 4.7 g/dL (3.5-5.0); Alkaline Phosphatase 74 U/L (39-117); Anion Gap 12 (12-20); Aspartate Amino Transferase 19 U/L (5-31); Blood Urea Nitrogen 14 mg/dL (9-16); Calcium 9.3 mg/dL (8.4-10.2); Carbon Dioxide 23 mmol/L (22-29); Chloride 108 mmol/L (96-108); Creatinine Clr Calc Pharmacy 12.2; Estimated Glomerular Filt Rate > 60; Potassium 3.7 mmol/L (3.3-5.1); Sodium 139 mmol/L (135-145); Total Protein 7.5 g/dL (6.5-8.0)
[2025-02-21 01:07] LABS: IDNOW Serial# 55D5AD1C; Strep A Nucleic Acid Negative (Negative)
[2025-02-21 01:23] LABS: Resp Syncy Virus RNA Qual PCR NEGATIVE (Negative); SARS COV2 PCR INHOUSE NEGATIVE (Negative)
--- OUTSIDE RECORDS SUMMARY | 2025-02-21 01:43 | XMS_ITS | Encounter Summary ---
Author Organization [employer] Address [address] [place] [address] [address] [place] [address] Care Team Providers Care Fish Tender Name Role Phone Valarie May MD Primary Care Provide r Reason for Visit * Reason Onset Date Comments Results 08/24/2022 Encounter Details Date Type Department Care Team ([facility] st Contact Info) Description 08/24/2022 Telephone [facility] [address] [place], [place] [phone] Valarie May MD [address] [place], [place] [phone] Results Social History Tobacco Use Types Packs/Day [...] Care Team (Late st Contact Info) Description 03/01/2025 11:30 AM EST Office Visit [address] [address] Kanu Carpenter MD [address] [place] [phone] 04/01/2025 9:15 AM EST Office Visit [address] [address] Valarie May MD [address] [place] [address] [phone] 04/02/2025 2:45 PM EST Procedure Visit [address] [phone] Valarie May MD [address] [place] [phone] documented as of this encounter Visit Diagnoses Not on filedocumented in this encounter Care Teams Fish Tender Relationship Specialty Start Date End Date Valarie May MD [address] [place] [address] [phone] PCP - General Family Medicine 11/12/21 documented as of this encounter
--- OUTSIDE RECORDS SUMMARY | 2025-02-21 01:43 | XMS_ITS | Clinical Summary ---
Author Organization [employer] Address [address] [place] [address] 7t [place] [address] Care Team Providers Care Bag Machine Operator Name Role Phone Valarie May MD Primary [...] FOR UP TO 10 DAYS. 5 Active Active Problems Problem Noted Date Diagnosed [...] Encounters Date Type Department Care Team Description 02/21/2025 Orders Only GENERIC EXTERNAL DATA DEPARTMENT Provider, Generic External Data 02/07/2025 Telephone [facility] MEDICINE [address] [place] [phone] Valarie May MD No Show 02/07/[address] [address] Valarie May MD chart prep 01/18/[address] [address] Valarie May MD MAKEDA RECALL 01/16/[address] [address] Valarie May MD chart prep 01/10/2025 Patient Outreach [facility] [address] [place], [place] [phone] Valarie May MD Pre-visit Planning ([facility] unable to reach [facility] ) 01/08/2025 1:00 PM EDT Office Visit [facility] OPTOMETRY [address] [place] [address] Anthony, Lani, OD Myopia of right eye (Primary Dx) 01/05/2025 Orders Only [facility] External Provider, [facility] 01/01/2025 7:40 PM EDT Office Visit [facility] WALK-IN CENTER [address] [place] [phone] Kathy Traore MD Otalgia of both ears (Primary Dx); Neuralgia involving scalp 12/21/2024 Population Health Risk [facility] [address] [place] [address] Provider, Population Health Generic 12/02/2024 Refill [facility] MEDICINE [address] [place] [phone] Valarie May MD Migraine without status migrainosus, not intractable, unspecified migraine type 11/30/2024 1:00 PM EDT Office Visit [facility] OPTOMETRY [address] [place] [address] Anthony, Lani, OD Alternating esotropia (Primary Dx); Myopia of right eye 11/29/2024 Telephone [facility] [address] [place] [address] Valarie May MD NOV RECALL 11/23/2024 Travel from Last 3 Months Immunizations Immunization Administration [...] Description 03/01/2025 11:30 AM EST Office Visit [facility] MEDICINE [address] [place] [phone] Kanu Carpenter MD [address] [place] [phone] 04/01/2025 9:15 AM EST Office Visit [address] [address] Valarie May MD [address] [place] [address] [phone] 04/02/2025 2:45 PM EST Procedure Visit [address] [phone] Valarie May MD [address] [place] [address] [phone] Health Maintenance Due Date Last Done Comments HIV Screening 2001 Pneumococcal Vaccine: Pediatrics (0 to 5 Years) and At-Risk Patients (6 to 49) Years (1 of 1 - PPSV23, PCV20, or PCV21) 12/24/2007 10/24/2003, 10/22/2003, 07/05/2002, Additional history exists Family Planning (PISQ) 2016 Meningococcal B Vaccine (1 of 2 - Standard) 2017 Hepatitis C Screening 12/24/2019 Pap Smear 2022 COVID-19 Vaccine ( - season) 2024 03/26/2021, 08/08/2020, 07/11/2020 Influenza Vaccine [...] 10/16/2002, 02/01/2002, 01/03/2002 HIB Vaccines Completed 04/10/2003, 03/2002, 05/04/2002, Additional history exists IPV Vaccines [...] Procedure Name Priority Date/Time Associated Diagnosis Comments COMPREHENSIVE METABOLIC PANEL, FASTING Routine 02/21/2025 12:40 AM EST CBC WITH AUTO DIFFERENTIAL Routine 02/21/2025 12:40 AM EST SARS COV2/INFLUENZA A/B AND RSV RNA QL NAAT Routine 02/21/2025 12:40 AM EST STREP A NUCLEIC ACID Routine 02/21/2025 12:40 AM EST MR BRAIN W AND WO CONTRAST Routine [...] 7:40 PM EDT Otalgia of both ears CHLAMYDIA/N. GONORRHOEAE RNA, TMA, UROGENITAL Routine 09/04/2024 2:01 PM EDT Healthcare maintenance LIPID PANEL, STANDARD Routine 08/10/2024 2:07 PM EDT Palpitations from Last 3 Months or Most Recently Relevant to Health Maintenance Results * (ABNORMAL) Comprehensive Metabolic Panel, Fasting (02/21/2025 12:40 AM EST) Sodium 139 135 - 145 mmol/L [facility] Potassium 3.7 3.3 - 5.1 mmol/L [facility] Chloride 108 96 - 108 mmol/L [facility] Carbon Dioxide 23 22 - 29 mmol/L [facility] Anion Gap 12 12 - 20 [facility] Urea Nitrogen (BUN) 14 9 - 16 mg/dL [facility] Creatinine, Serum 0.72 0.5 - 1.4 mg/dL [facility] Creatinine Clr Calc Pharmacy 12.2 [facility] Comment:Provided height and weight: 165.1 cm,6.35 kg.eGFR (calculated from the MDRD study equation) and eCrCl(calculated from the Cockcroft-Gault equation) are based ondifferent parameters and may not yield comparable results.If eCrCl result is absurd, please check patient'sheight/weight. Estimated Glomerular Filt Rate >60 [facility] Comment:Chronic Kidney Disea se: Estimated GFR < 60 mL/min/1.80q3Gbhtqp Kidney Disease: Estimated GFR < 15 mL/min/1.73m2 Glucose Fasting 102(H) 60 - 99 mg/dL [facility] Comment:A fasting glucose fr om 100-125 mg/dl is considered impaired(pre-diabetes). Calcium 9.3 8.4 - 10.2 mg/dL [facility] Bilirubin, Total 0.1 0.0 - 1.0 mg/dL [facility] Aspartate Amino Transferase 19 5 - 31 U/L [facility] Alanine Aminotransferase 13 0 - 31 U/L [facility] Total Protein 7.5 6.5 - 8.0 g/dL [facility] Albumin Level 4.7 3.5 - 5.0 g/dL [facility] Alkaline Phosphatase 74 39 - 117 U/L [facility] 02/21/2025 12:4 0 AM EST 02/21/2025 12:44 AM EST us Generic External Data Provider LAB BLOOD ORDERAB LES Final Result Performing Organization Address [facility]/ZIP Co de Phone Number [facility] [address] [place] [phone] * Strep A Nucleic Acid (02/21/2025 12:40 AM EST) IDNOW SERIAL# [id number] [facility] Strep A Nucleic Acid Negative Negative [facility] Comment:All test results mus t be correlated with clinical findings.This test has not been evaluated for monitoring treatment ofinfection.Additional follow-up testing using the culture method isrequired if the result is negative and clinical symptomspersist, or in the event of an acute rheumatic feveroutbreak. 02/21/2025 12:4 0 AM EST 02/21/2025 12:45 AM EST us Generic External Data Provider LAB MICROBIOLOGY - GENERAL ORDERABLES Final Result [facility] [address] [place] [address] [phone] * SARS-CoV-2 RNA, Influenza A/B, and RSV RNA, Ql NAAT (02/21/2025 12:40 AM EST) Influenza A PCR NEGATIVE Negative [facility] Influenza B PCR NEGATIVE Negative [facility] Resp Syncy Virus RNA Qual PCR NEGATIVE Negative [facility] SARS COV2 PCR NEGATIVE Negative [facility] Comment:All test results mus t be correlated with clinical findings.Negative results do not preclude SARS-CoV2, influenza Avirus, influenza B virus and/or RSV infectionand should not be used as the sole basis for treatment orother patient management decisions. Negative results must becombined with clinical observations, patient history, andepidemiological information.This test has not been evaluated for monitoring treatment ofinfection.This test has been authorized by the FDA under an EmergencyUse Authorization (EUA) for use by authorized laboratories.Testing performed on the Qiro GeneXpert utilizingreal-time RT-PCR.All SARS CoV2 and positive influenza A/B results arereported to [facility]. 02/21/2025 12:4 0 AM EST 02/21/2025 12:45 AM EST us Generic External Data Provider LAB MICROBIOLOGY - GENERAL ORDERABLES Final Result [facility] [address] [place] [phone] * (ABNORMAL) CBC auto differential (02/21/2025 12:40 AM EST) White Blood Count 8.3 4.8 - 10.8 X10*3/uL [facility] Red Blood Count 4.04(L) 4.20 - 5.50 X10*6/uL [facility] Hemoglobin 11.1(L) 12.0 - 16.0 g/dl [facility] Hematocrit 34.4(L) 37.0 - 47.0 % [facility] Mean Corpuscular Volume 85.1 80.0 - 98.0 fL [facility] Mean Corpuscular Hemoglobin 27.5 27.0 - 33.0 pg [facility] Mean Corpuscular HGB Conc 32.3 31.0 - 35.0 g/dl [facility] Red Cell Distribution Width 12.5 11.0 - 16.0 % [facility] Platelet Count 347 160 - 400 X10*3/uL [facility] Mean Platelet Volume 9.7 9.4 - 12.3 fL [facility] Neutrophils Percent Auto 50.2 45 - 73 % [facility] Imm Gran Pct Auto 0.1 0.0 - 0.4 % [facility] Lymphocytes Percent Auto 40.0 20 - 40 % [facility] Monocytes Percent Auto 7.5 2 - 11 % [facility] Eosinophils Percent Auto 1.4 0 - 4 % [facility] Basophils Percent Auto 0.8 0 - 2 % [facility] NRBC Pct Auto 0.0 0.0 - 0.2 /100WBC [facility] Neutrophils Absolute Auto 4.2 2.0 - 8.3 x10*3/uL [facility] Imm Gran Abs Auto 0.01 0.00 - 0.03 X10*3/uL [facility] Lymphocytes Absolute Auto 3.3 1.2 - 4.9 X10*3/uL [facility] Monocytes Absolute Auto 0.6 0.1 - 1.2 X10*3/uL [facility] Eosinophils Absolute Auto 0.1 0.0 - 0.4 X10*3/uL [facility] Basophils Absolute Auto 0.1 0.0 - 0.2 X10*3/uL [facility] NRBC Abs Auto 0.000 0.0 - 0.012 X10*3/uL [facility] 02/21/2025 12:4 0 AM EST 02/21/2025 12:44 AM EST us Generic External Data Provider LAB BLOOD ORDERAB LES Final Result [facility] [address] [place] [phone] * Mr Brain w/ and w/o Contrast (01/05/2025 3:37 PM EDT) Anatomical Region Laterality Modality Brain Magnetic Resonan ce 01/05/2025 3:37 PM EDT Narrative 01/07/2025 7:44 AM EDT [address] [address] Magnetic Resonance Report Signed Patient: Lucille Sr MR#: [id number] [birth year] : 2000 Acct:[id number] Age/Sex: 24 / F ADM Date: 01/05/25 Loc: HO.MRI Attending Dr: Emi Crocker CNP Ordering Physician: Emi Crocker CNP Date of Service: 01/05/25 Procedure(s): MR head/brain wo/w con Accession Number(s): [id number] cc: Valarie May MD; Emi Crocker CNP [...] 01/07/25 0741 DD/ 1537 TD/TT: 01/05/25 1558 Planning Lead: Procedure Note Donotuseinterpreter, Image - 01/07/2025 [place] [address] Magnetic Resonance Report Signed Patient: Lucille SrMR#: [id number] [birth year] : 2000Acct:[id number] Age/Sex: 24 / FADM Date: 01/05/25 Loc: HO.MRI Attending Dr: Emi Crocker CNP Ordering Physician: Emi Crocker CNP Date of Service: 01/05/25 Procedure(s): MR head/brain wo/w con Accession Number(s): [id number] cc: Valarie May MD; Emi Crocker CNP [...] 01/07/25 0741 DD/ 1537 TD/TT: 01/05/25 1558 Planning Lead: [facility] External Provider IMG MRI PROCEDURES Edited Result - Final * MRA Head w/o Contrast (01/05/2025 3:28 PM EDT) Anatomical Region Laterality Modality Head, Neck Magnetic Resonan ce 01/05/2025 3:28 PM EDT Narrative 01/07/2025 7:43 AM EDT [address] [address] Magnetic Resonance Report Signed Patient: Lucille Sr MR#: [id number] 06 : 2000 Acct:[id number] Age/Sex: 24 / F ADM Date: 01/05/25 Loc: HO.MRI Attending Dr: Emi Crocker CNP Ordering Physician: Emi Crocker CNP Date of Service: 01/05/25 Procedure(s): MR angio head wo con Accession Number(s): [id number] cc: Valarie May MD; Emi Crocker CNP Reason for Exam: R51.9 - Headache, unspecified EXAMINATION: MR ANGIOGRAPHY BRAIN WITHOUT CONTRAST CLINICAL INFORMATION: R 51.9. Headache. COMPARISON: None available. TECHNIQUE: 3-D [id number]. Maximum intensity projections [place]. FINDINGS: Patient's motion artifact. Anterior [...] Superior cerebellar arteries flow signal is normal. teacher counselor: No flow signal gap or abrupt cut off. MR/MR angio head wo con IMPRESSION: No main cerebral artery occlusion or embolus or gross aneurysm. Right posterior inferior cerebral artery flow signal is not present. Electronically signed by: Wilbert Ricketts MD 01/07/2025 07:40 AM EDT RP Dictated By: Wilbert Packer MD Signed By: <Electronically signed by Wilbert Silva MD in OV> 01/07/25 0740 DD/ 1528 TD/TT: 01/05/25 1537 Planning Lead: Procedure Note Donotuseinterpreter, Image - 01/07/[address] [address] Magnetic Resonance Report Signed Patient: Lucille SrMR#: [id number] [birth year] : 2000Acct:[id number] Age/Sex: 24 FADM Date: 01/05/25 Loc: HO.MRI Attending Dr: Emi Crocker CNP Ordering Physician: Emi Crocker CNP Date of Service: 01/05/25 Procedure(s): MR angio head wo con Accession Number(s): [id number] cc: Valarie May MD; Emi Crocker CNP Reason for Exam: R51.9 - Headache, unspecified EXAMINATION: MR ANGIOGRAPHY BRAIN WITHOUT CONTRAST CLINICAL INFORMATION: R 51.9. Headache. COMPARISON: None available. TECHNIQUE: 3-D [id number]. Maximum intensity projections [place]. FINDINGS: Patient's motion artifact. Anterior [...] Superior cerebellar arteries flow signal is normal. teacher counselor: No flow signal gap or abrupt cut off. MR/MR angio head wo con IMPRESSION: No main cerebral artery occlusion or embolus or gross aneurysm. Right posterior inferior cerebral artery flow signal is not present. Electronically signed by: Wilbert Ricketts MD 01/07/2025 07:40 AM EDT RP Dictated By: Wilbert Packer MD Signed By: <Electronically signed by Wilbert Silva MDin OV> 01/07/25 0740 DD/ 1528 TD/TT: 01/05/25 1537 Planning Lead: [facility] External Provider IMG MRI PROCEDURES Edited Result - Final * POCT Rapid Influenza B BAUTISTA ID NOW (01/01/2025 7:40 PM EDT) Influenza B Negative Negative, Indeterminate [facility] QC Media Lot # [id number] [facility] Lot# Expiration Date [facility] Swab 01/01/2025 7:40 PM EDT Kathy Traore MD POINT OF CARE TEST ENTER /EDIT ORDERABLES Final Result [facility] [address] [place] [phone] * POCT Rapid Influenza A BAUTISTA ID NOW (01/01/2025 7:40 PM EDT) Influenza A Negative Negative, Indeterminate [facility] QC Media Lot # [id number] [facility] Lot# Expiration Date [facility] Swab 01/01/2025 7:40 PM EDT Kathy Traore MD POINT OF CARE TEST ENTER /EDIT ORDERABLES Final Result [facility] [address] [place] [address] [phone] * POCT Rapid Covid-19 BinaxNOW (01/01/2025 7:40 PM EDT) [facility] Rapid COVID Ag Negative QC Media Lot # [id number] Lot# Expiration Date [id number] Swab 01/01/2025 7:40 PM EDT Kathy Traore MD POINT OF CARE TEST ENTER /EDIT ORDERABLES Final Result * Chlamydia/N. Gonorrhoeae RNA, TMA, Urogenitial (09/04/2024 2:01 PM EDT) [facility] CT PCR NOT DETECTED Not Detect. [facility] Comment:A not detected test result [...] psychologicalconsequences. NG PCR NOT DETECTED Not Detect. [facility] Comment:A not detected test result [...] PM EDT 09/04/2024 4:31 PM EDT Narrative [facility] - 09/04/2024 6:44 PM EDT Urine us Deanna Kahn NP LAB MICROBIOLOGY - GENERAL ORDER DIONI Final Result [facility] [address] [place] [phone] * Lipid Panel, Standard (08/10/2024 2:07 PM EDT) Triglycerides 60 <150 mg/dL [facility] Comment:Desirable Triglyceri de: less than 150 mg/dLBorderline High Triglyceride 150-199 mg/dLHigh Triglyceride: 200-499 mg/dLVery High Triglyceride: greater than or equal to 5OO mg/dL Cholesterol 171 <200 mg/dL [facility] Comment:Desirable Cholestero l: less than 200 mg/dLBorderline High Cholesterol: 200-239 mg/dLHigh Cholesterol: greater than 239 mg/dL LDL Cholesterol Calculated 95 <100 mg/dL [facility] Comment:Desirable LDL: less than 100 mg/dLNear Optimal/Above Optimal LDL: 110- 129 mg/dLBorderline High LDL: 130-159 mg/dLHigh LDL: 160-189 mg/dLVery High LDL: greater than or equal to 190 mg/dL HDL Cholesterol 64 >40 mg/dL [facility] Comment:Desirable HDL: great er than 40 mg/dL Note: This HDL assay may give artificially low results in patients with liver disease. Blood Venous blood specimen / Unknown 08/10/2024 2:07 PM EDT 08/10/2024 4:24 PM EDT us Bianka Eli MD LAB BLOOD ORDERABLES Final Res ult [facility] [address] [place], [place] [phone] from Last 3 Months or Most Recently Relevant to Health Maintenance Insurance [employer] Care Teams Bag Machine Operator Relationship Specialty Start Date End Date Valarie May MD [address] [place] [address] PCP - General Family Medicine 11/12/21
--- OUTSIDE RECORDS SUMMARY | 2025-02-21 01:43 | XMS_ITS | Encounter Summary ---
Author Organization [employer] Address [address] [place] [address] [address] [place] [address] Care Team Providers Care Professional Fighter Name Role Phone Valarie May MD Primary Care Provide r Encounter Details Date Type Department Care Team (Late Contact Info) Description 01/26/2023 Orders Only [facility] [address] [place], [place] [phone] Yanick Arrington MD [address] [place], [place] [phone] Bacterial vaginosis (Primary Dx) Social History Tobacco [...] Description 03/01/2025 11:30 AM EST Office Visit [address] [address] Kanu Carpenter MD [address] [place] [phone] 04/01/2025 9:15 AM EST Office Visit [address] [address] Valarie May MD [address] [place] [phone] 04/02/2025 2:45 PM EST Procedure Visit [address] [address] Valarie May MD [address] [place] [address] [phone] documented as of this encounter Visit Diagnoses Diagnosis Bacterial vaginosis- Primary Unspecified vaginitis and vulvovaginitis documented in this encounter Care Teams Professional Fighter Relationship Specialty Start Date End Date Valarie May MD [address] [place] [address] [phone] PCP - General Family Medicine 11/12/21 documented as of this encounter
--- OUTSIDE RECORDS SUMMARY | 2025-02-21 01:43 | XMS_ITS | Encounter Summary ---
Author Organization [employer] Address [address] [place] [address] [address] [place] [address] Care Team Providers Care Microsoft Dynamics Developer Name Role Phone Valarie May MD Primary Care Provide r Encounter Details Date Type Department Care Team (Late st Contact Info) Description 02/21/2025 Orders Only GENERIC EXTERNAL DATA DEPARTMENT Provider, Generic External Data Social History Tobacco Use Types Packs/Day Years [...] Description 03/01/2025 11:30 AM EST Office Visit [address] [address] Kanu Carpenter MD [address] [place] [phone] 04/01/2025 9:15 AM EST Office Visit [address] [address] Valarie May MD [address] [place] [phone] 04/02/2025 2:45 PM EST Procedure Visit [address] [address] Valarie May MD [address] [place] [phone] documented as of this encounter Procedures Procedure Name Priority Date/Time Associated Diagnosis Comments COMPREHENSIVE METABOLIC PANEL, FASTING Routine 02/21/2025 12:40 AM EST STREP A NUCLEIC ACID Routine 02/21/2025 12:40 AM EST SARS COV2/INFLUENZA A/B AND RSV RNA QL NAAT Routine 02/21/2025 12:40 AM EST CBC WITH AUTO DIFFERENTIAL Routine 02/21/2025 12:40 AM EST documented in this encounter Results * SARS-CoV-2 RNA, Influenza A/B, and RSV RNA, Ql NAAT (02/21/2025 12:40 AM EST) Influenza A PCR NEGATIVE Negative [facility] Influenza B PCR NEGATIVE Negative [facility] Resp Syncy Virus RNA Qual PCR NEGATIVE Negative [facility] SARS COV2 PCR NEGATIVE Negative [facility] Comment:All test results mus t be [...] use by authorized laboratories.Testing performed on the [employer] GeneXpert utilizingreal-time RT-PCR.All SARS CoV2 and positive influenza A/B results arereported to [facility]. 02/21/2025 12:4 0 AM EST 02/21/2025 12:45 AM EST us Generic External Data Provider LAB MICROBIOLOGY - GENERAL ORDERABLES Final Result [facility] [address] [place] [phone] * Strep A Nucleic Acid (02/21/2025 12:40 AM EST) IDNOW SERIAL# [id number] [facility] Strep A Nucleic Acid Negative Negative [facility] Comment:All test results mus t [...] LAB MICROBIOLOGY - GENERAL ORDERABLES Final Result [facility] [address] [place] [address] [phone] * (ABNORMAL) Comprehensive Metabolic Panel, Fasting (02/21/2025 12:40 AM EST) Sodium 139 135 - 145 mmol/L [facility] Potassium 3.7 3.3 - 5.1 mmol/L [facility] Chloride 108 96 - 108 mmol/L [facility] Carbon Dioxide 23 22 - 29 mmol/L [facility] Anion Gap 12 12 - 20 [facility] Urea Nitrogen (BUN) 14 9 - 16 mg/dL [facility] Creatinine, Serum 0.72 0.5 - 1.4 mg/dL [facility] Creatinine Clr Calc Pharmacy 12.2 [facility] Comment:Provided height and weight: 165.1 cm,6.35 kg.eGFR (calculated from the MDRD study equation) and eCrCl(calculated from the Cockcroft-Gault equation) are based ondifferent parameters and may not yield comparable results.If eCrCl result is absurd, please check patient'sheight/weight. Estimated Glomerular Filt Rate >60 [facility] Comment:Chronic Kidney Disea se: Estimated GFR < 60 mL/min/1.78n7Qhwssa Kidney Disease: Estimated GFR < 15 mL/min/1.73m2 Glucose Fasting 102(H) 60 - 99 mg/dL [facility] Comment:A fasting glucose fr om 100-125 mg/dl is considered impaired(pre-diabetes). Calcium 9.3 8.4 - 10.2 mg/dL [facility] Bilirubin, Total 0.1 0.0 - 1.0 mg/dL [facility] Aspartate Amino Transferase 19 5 - 31 U/L [facility] Alanine Aminotransferase 13 0 - 31 U/L [facility] Total Protein 7.5 6.5 - 8.0 g/dL [facility] Albumin Level 4.7 3.5 - 5.0 g/dL [facility] Alkaline Phosphatase 74 39 - 117 U/L [facility] 02/21/2025 12:4 0 AM EST 02/21/2025 12:44 AM EST us Generic External Data Provider LAB BLOOD ORDERAB LES Final Result [facility] [address] [place], [place] [phone] * (ABNORMAL) CBC auto differential (02/21/2025 12:40 AM EST) White Blood Count 8.3 4.8 - 10.8 X10*3/uL [facility] Red Blood Count 4.04(L) 4.20 - 5.50 X10*6/uL [facility] Hemoglobin 11.1(L) 12.0 - 16.0 g/dl [facility] Hematocrit 34.4(L) 37.0 - 47.0 % [facility] Mean Corpuscular Volume 85.1 80.0 - 98.0 fL [facility] Mean Corpuscular Hemoglobin 27.5 27.0 - 33.0 pg [facility] Mean Corpuscular HGB Conc 32.3 31.0 - 35.0 g/dl [facility] Red Cell Distribution Width 12.5 11.0 - 16.0 % [facility] Platelet Count 347 160 - 400 X10*3/uL [facility] Mean Platelet Volume 9.7 9.4 - 12.3 fL [facility] Neutrophils Percent Auto 50.2 45 - 73 % [facility] Imm Gran Pct Auto 0.1 0.0 - 0.4 % [facility] Lymphocytes Percent Auto 40.0 20 - 40 % [facility] Monocytes Percent Auto 7.5 2 - 11 % [facility] Eosinophils Percent Auto 1.4 0 - 4 % [facility] Basophils Percent Auto 0.8 0 - 2 % [facility] NRBC Pct Auto 0.0 0.0 - 0.2 /100WBC [facility] Neutrophils Absolute Auto 4.2 2.0 - 8.3 x10*3/uL [facility] Imm Gran Abs Auto 0.01 0.00 - 0.03 X10*3/uL [facility] Lymphocytes Absolute Auto 3.3 1.2 - 4.9 X10*3/uL [facility] Monocytes Absolute Auto 0.6 0.1 - 1.2 X10*3/uL [facility] Eosinophils Absolute Auto 0.1 0.0 - 0.4 X10*3/uL [facility] Basophils Absolute Auto 0.1 0.0 - 0.2 X10*3/uL [facility] NRBC Abs Auto 0.000 0.0 - 0.012 X10*3/uL [facility] 02/21/2025 12:4 0 AM EST 02/21/2025 12:44 AM EST us Generic External Data Provider LAB BLOOD ORDERAB LES Final Result [facility] [address] [place] [phone] documented in this encounter Visit Diagnoses Not on filedocumented in this encounter Additional Health Concerns Assessment Noted Time PHQ-9 Depression Total Score: 13 025 2:04 PM EDT documented as of this encounter Care Teams Microsoft Dynamics Developer Relationship Specialty Start Date End Date Valarie May MD [address] [place] [phone] PCP - General Family Medicine 11/12/21 documented as of this encounter
--- OUTSIDE RECORDS SUMMARY | 2025-02-21 01:43 | XMS_ITS | Encounter Summary ---
Author Organization [employer] Address [address] [facility] 7t [place] [address] Care Team Providers Care Offset Platemaker Name Role Phone Valarie May MD Primary Care Provide r Reason for Visit * Reason Comments Med Refill Encounter Details Date Type Department Care Team ([facility] st Contact Info) Description 2023 Refill [facility] [address] [place], [place] [phone] Valarie May MD [address] [place] [address] Social History Tobacco Use Types Packs/Day Years [...] Description 03/01/2025 11:30 AM EST Office Visit [address] [address] Kanu Carpenter MD [address] [place] [phone] 04/01/2025 9:15 AM EST Office Visit [address] [address] Valarie May MD [address] [place] [address] 04/02/2025 2:45 PM EST Procedure Visit [address] [address] Valarie May MD [address] [place] [phone] documented as of this encounter Visit Diagnoses Not on filedocumented in this encounter Additional Health Concerns Assessment Noted Time PHQ-9 Depression Total Score: 0 12/21/19 24 11:11 AM EDT documented as of this encounter Care Teams Offset Platemaker Relationship Specialty Start Date End Date Valarie May MD [address] [place] [phone] PCP - General Family Medicine 11/12/21 documented as of this encounter
--- OUTSIDE RECORDS SUMMARY | 2025-02-21 01:43 | XMS_ITS | Encounter Summary ---
Author Organization [employer] Address [address] [place] [address] [address]t [place] [address] Care Team Providers Care Filler Room Attendant Name Role Phone Valarie May MD Primary Care Provide r Reason for Visit * Reason Comments Med Change Request Encounter Details Date Type Department Care Team ([facility] st Contact Info) Description 12/02/2024 Refill [facility] [address] [place], [place] [phone] Valaire May MD [address] [place], [place] [phone] Migraine without status migrainosus, not intractable, unspecified [...] Description 03/01/2025 11:30 AM EST Office Visit [facility] [address] [place] [address] Kanu Carpenter MD [address] [place] [phone] 04/01/2025 9:15 AM EST Office Visit [address] [address] Valarie May MD [address] [place] [phone] 04/02/2025 2:45 PM EST Procedure Visit [address] [address] Valarie May MD [address] [place] [phone] documented as of this encounter Visit Diagnoses Diagnosis Migraine without status migrainosus, not intractable, unspecified migraine type documented in this encounter Additional Health Concerns Assessment Noted Time PHQ-9 Depression Total Score: 13 025 2:04 PM EDT documented as of this encounter Care Teams Filler Room Attendant Relationship Specialty Start Date End Date Valarie May MD [address] [place] [address] PCP - General Family Medicine 11/12/21 documented as of this encounter
--- OUTSIDE RECORDS SUMMARY | 2025-02-21 01:43 | XMS_ITS | Encounter Summary ---
Author Organization [employer] Address [address] [place] [address] [address]t [place] [address] Care Team Providers Care Threading Machine Setter Name Role Phone Valarie May MD Primary Care Provide r Reason for Visit * Reason Onset Date Comments Nurse Triage 01/25/2023 Encounter Details Date Type Department Care Team ([facility] st Contact Info) Description 01/25/2023 Telephone [facility] [address] [place], [place] [phone] Valarie May MD [address] [place], [place] [phone] Nurse Triage Social History Tobacco Use Types [...] Description 03/01/2025 11:30 AM EST Office Visit [facility] [address] [place] [address] Kanu Carpenter MD [address] [place] [phone] 04/01/2025 9:15 AM EST Office Visit [address] [address] Valarie May MD [address] [place] [phone] 04/02/2025 2:45 PM EST Procedure Visit [facility] [address] [place] [address] Valarie May MD [address] [place], [place] [phone] documented as of this encounter Visit Diagnoses Not on filedocumented in this encounter Care Teams Threading Machine Setter Relationship Specialty Start Date End Date Valarie May MD [address] [place] [phone] PCP - General Family Medicine 11/12/21 documented as of this encounter
--- NOTE | 2025-02-21 02:18 | PC.NURSE ---
patient seen by another nurse ambulating to exit.
== END 2025-02-21 02:20 | disposition left against medical advice (07) ==
PROVIDERS: Emergency Provider Emergency Medicine; PCP Internal Medicine
DX: J06.9 Acute upper respiratory infection, unspecified (principal); Z53.21 Procedure and treatment not carried out due to patient leaving prior to being seen by health care provider
CPT/HCPCS: 71045; 80053; 85025; 87637; 87651; 99281

== ENCOUNTER → 2025-02-21 00:48 | Outpatient (BNV) | payer MEDICAID, SELFPAY | PROVIDERS: PCP Internal Medicine; Visit Provider Radiology Diagnostic Radiology | DX: R06.02 Shortness of breath (principal) | CPT/HCPCS: 71045 ==

== ENCOUNTER 2025-03-17 03:18 | Emergency (ER) | payer MEDICAID, SELFPAY ==
--- NOTE | 2025-03-17 | ECG_ITS ---
Test Reason : cp Blood Pressure : */* mmHG Vent. Rate : 110 BPM Atrial Rate : 110 BPM P-R Int : 166 ms QRS Dur : 88 ms QT Int : 356 ms P-R-T Axes : -12 -20 7 degrees QTcB Int : 481 ms Sinus tachycardia Minimal voltage criteria for LVH, may be normal variant ( R in aVL ) Borderline ECG When compared with ECG of 15-Aug-2022 23:45, Questionable change in QRS axis Referred By: Generic ED Physician Electronically Signed By: CLARI RICHARD MD
--- NOTE | ~2025-03-17 | XR_ITS ---
CLINICAL HISTORY: sob, chest pain tightness 2 view chest x-ray Comparison: CR - XR CHEST 1V - 02/21/25 00:48 EST Findings: No consolidation or effusion. Heart size is normal. No acute fracture. IMPRESSION: 1. No acute findings. This document has been electronically signed by: Tapan Wilkins MD, PHD on 03/17/2025 04:43:51
[2025-03-17 03:43] VITALS: BP 138/74; PULSE 114; RESP 18; TEMP 36.8; O2SAT 98; BMI 24.4
[2025-03-17 04:36] LABS: Resp Syncy Virus RNA Qual PCR NEGATIVE (Negative); SARS COV2 PCR INHOUSE NEGATIVE (Negative)
== END 2025-03-17 05:32 | disposition left against medical advice (07) ==
PROVIDERS: Emergency Provider Emergency Medicine
DX: R07.9 Chest pain, unspecified (principal); Z03.818 Encounter for observation for suspected exposure to other biological agents ruled out; Z53.29 Procedure and treatment not carried out because of patient's decision for other reasons
CPT/HCPCS: 71046; 87637; 93005; 99281; 99283

== ENCOUNTER → 2025-03-17 03:20 | Outpatient (BNV) | payer MEDICAID, SELFPAY | PROVIDERS: Emergency Provider Emergency Medicine; Visit Provider Internal Medicine Cardiovascular Disease | DX: R00.0 Tachycardia, unspecified (principal) | CPT/HCPCS: 93010 ==

== ENCOUNTER → 2025-03-17 04:07 | Outpatient (BNV) | payer MEDICAID, SELFPAY | PROVIDERS: Visit Provider General Practice | DX: R06.02 Shortness of breath (principal); R07.89 Other chest pain | CPT/HCPCS: 71046 ==